=== PATIENT | female | born 1945 | race Caucasian/White ===

== ENCOUNTER 2019-02-09 00:03 | Inpatient (IN) | payer OTHER ==
[~2019-02-09] VITALS: Ht 160 cm; Wt 119.3 kg
[2019-02-09] MEDS ORDERED: ALBU3IS INH (00:30)
[2019-02-09] MEDS ORDERED: GABA600 PO (00:31)
[2019-02-09] MEDS ORDERED: Norco 10-325 T1 EACH PO (00:31)
[2019-02-09] MEDS ORDERED: ZYRTEC10 M1 PO (00:32)
[2019-02-09] MEDS ORDERED: Nexium40 MG PO (00:32)
[2019-02-09] MEDS ORDERED: ETOD400 PO (00:32)
[2019-02-09 00:41] LABS: Base Excess Venous 9.1 mmol/L; Bicarbonate Venous 31.2 mmol/L (24.0-30.0); PCO2 Venous 55.7 mmHg (38-42); pH Blood Venous 7.39 (7.34-7.37)
[2019-02-09 00:42] LABS: BASOPHILS ABSOLUTE AUTO 0.03 K/mm3 (0.00-0.23); BASOPHILS PERCENT AUTO 0 % (0-2); EOSINOPHILS ABSOLUTE AUTO 0.08 K/mm3 (0.00-0.68); EOSINOPHILS PERCENT AUTO 1 % (0-6); Hematocrit 39.4 % (33.0-51.0); Hemoglobin 12.1 g/dL (11.5-16.0); IMMATURE GRAN PERCENT AUTO 1 % (0-1); LYMPHOCYTES ABSOLUTE AUTO 2.37 K/mm3 (0.84-5.20); LYMPHOCYTES PERCENT AUTO 29 % (21-46); MONOCYTES ABSOLUTE AUTO 0.54 K/mm3 (0.16-1.47); MONOCYTES PERCENT AUTO 7 % (4-13); Mean Corpuscular HGB 29.7 pg (26.0-34.0); Mean Corpuscular HGB Conc 30.7 g/dL (31.5-36.5); Mean Corpuscular Volume 97 fL (80-100); Mean Platelet Volume 11.1 fL (9.1-12.4); NEUTROPHILS ABSOLUTE AUTO 4.96 K/mm3 (1.96-9.15); NEUTROPHILS PERCENT AUTO 61 % (41-73); Platelet Count 242 K/mm3 (150-400); RDW Coefficient Variation 14.2 % (11.7-14.2); RDW Standard Deviation 50.4 fL (35.1-46.3); Red Blood Cell Count 4.08 M/mm3 (3.80-5.20); White Blood Cell Count 8.08 K/mm3 (4.00-11.30)
[2019-02-09 01:09] LABS: Alanine Aminotransfer (ALT/SGP 14 U/L (12-78); Albumin, Blood 3.4 g/dL (3.4-5.0); Albumin/Globulin Ratio 0.8 (0.8-1.8); Alk Phos 78 U/L (50-136); Anion Gap 3 mmol/L (6-16); Aspartate Aminotrans (AST/SGOT 9 U/L (12-37); Bilirubin, Total 0.4 mg/dL (0.1-1.0); Blood Urea Nitrogen 13 mg/dL (8-24); Bun/Creatinine Ratio 17.2 (12.0-20.0); CO2, Blood 35 mmol/L (21-32); Calcium, Blood 9.2 mg/dL (8.5-10.1); Chloride, Blood 103 mmol/L (98-108); Creatinine, Blood 0.76 mg/dL (0.40-1.00); Glomerular Filtration Rate >60 (60-); Glucose, Blood 119 mg/dL (70-99); Potassium, Blood 3.9 mmol/L (3.5-5.5); Sodium, Blood 141 mmol/L (136-145); Total Protein, Blood 7.4 g/dL (6.4-8.2); Troponin I <0.015 ng/mL (0.000-0.040)
[2019-02-09] MEDS ORDERED: PIOG30 PO (01:09)
[2019-02-09] MEDS ORDERED: LEVSOD50 PO (01:09)
[2019-02-09 04:58] LABS: BASOPHILS ABSOLUTE AUTO 0.02 K/mm3 (0.00-0.23); BASOPHILS PERCENT AUTO 0 % (0-2); EOSINOPHILS PERCENT AUTO 0 % (0-6); Hemoglobin 11.1 g/dL (11.5-16.0); IMMATURE GRAN ABSOLUTE AUTO 0.08 K/mm3 (0.00-0.10); IMMATURE GRAN PERCENT AUTO 1 % (0-1); LYMPHOCYTES ABSOLUTE AUTO 0.32 K/mm3 (0.84-5.20); LYMPHOCYTES PERCENT AUTO 3 % (21-46); MONOCYTES ABSOLUTE AUTO 0.07 K/mm3 (0.16-1.47); MONOCYTES PERCENT AUTO 1 % (4-13); Mean Corpuscular HGB 29.8 pg (26.0-34.0); Mean Corpuscular HGB Conc 30.8 g/dL (31.5-36.5); Mean Corpuscular Volume 97 fL (80-100); Mean Platelet Volume 11.7 fL (9.1-12.4); NEUTROPHILS PERCENT AUTO 96 % (41-73); Platelet Count 236 K/mm3 (150-400); RDW Coefficient Variation 14.2 % (11.7-14.2); RDW Standard Deviation 50.4 fL (35.1-46.3); Red Blood Cell Count 3.72 M/mm3 (3.80-5.20); White Blood Cell Count 11.29 K/mm3 (4.00-11.30)
--- NOTE | 2019-02-09 06:33 | NUR ---
SHIFT SUMMARY PT A&O X4 . PT ADMITTED FROM ER THIS SHIFT. VSS; TELEMETRY IN PLACE, SR WITH BBB PER SHIRT SORTER. PT ON 3L O2 VIA NC AT THIS TIME; PT DENIES INCREASED SOB; NO INCREASE IN WOB NOTED. CONT. OXIMETRY IN PLACE, 94% AT THIS TIME. SCD'S TO BLE'S. CALL LIGHT IN REACH. WCTM UNTIL REPORT TO DAY SHIFT RN.
--- NOTE | 2019-02-09 08:10 | NUR ---
Yessenia is sitting up in recliner chair, upright, eating breakfast. States that her breathing is improved from when she arrived, but still dyspneic with exertion and tachypneic at rest. She is not able to state a complete sentence without interruption to take a breath. Is wearing oxygen at 3 l/min, which she states is her baseline delivery rate at home. Candie here from imaging to do the duplex study; however, the pt states that she cannot tolerate lying on her back (prevents her from being able to breathe, she states) and the study requires a lot of pictures of the left groin. Pt states that possibly she could lie on her side for the study, after breakfast. Candie states she will check back later.
--- NOTE | 2019-02-10 01:34 | NUR ---
ASSUMED CARE AT 1900. OOB TO BSC AND EXTREME TACHEPNEA W/ THIS ACTIVITY, PAIN REPORTED RLQ IF GAS PAIN. ATTEMPTS TO HAVE BM AND SMALL SOFT BM. TYLENOL FOR PRYOR AND RT LOWER BACK PAIN . UNKNOWN CAUSE REPORTED BY PT. LUNGS MOSTLY CLEAR UPPER AIRWAYS. BBC . EASILY ESCALATES W/ ANXIETY AND CONSTANTLY WANTS TO KNOW WHAT HER SAT READING IS SHE HAS EXERTIONAL SOB WHILE SHIFTING SELF IN BED OR TO DANGLE.SAT NEVER BELOW 90 ON 2-3 L ./CONT TO REFUSE CPAP,AND REFUSES TO WEAR FOR SLEEP/ FEW TIMES DOZING OFF TO SLEEP AND NO ISSUE W/ SAT READ.SKIN FOLD REDNESS. AREA CLEANSED. UNGT APPLIED. MAY NEED NYSTATIN. EXTREME LOWER EXT EDEMA.
--- NOTE | 2019-02-10 06:08 | NUR ---
SHIFT SUMMARY.. NO CHANGE IN ABOVE REVIEW. STILL VERY SOB W/ ACTIVITY OF DANGLE AND BSC. UNABLE TO HELP W/ POST TOILET WIPING. COMFORTABLE PAIN RELIEF THRU NOC. SLEPT 50% OF NOC,SATS ALWAYS >90 W/ EXERTION. BUT PANTING BREATHS AND EDUCATED IN RELAXING W/ BREATHING
--- NOTE | 2019-02-10 11:05 | NUR ---
NOTE PT UP SITTING AT BEDSIDE. SR/ST. PT SOB WITH ACTIVITY OR EARTING. SHE IS ABLE TO TRANSFER TO [facility] TO VOID S/P LASIX TX. PT O2 NEEDS ARE 3L N/C. SAME LITER FLOW AT HOME. PT BLE EDEMA IS STABLE. TALKED WITH PT ABOUT [place] TO SUPPORT FLUID REMOVAL FROM HER LEGS. WILL PLACE THEM WHEN SHE LAYS DOWN. PT C/O OF HEADACHE. FRONT FOREHEAD AND BEHIND HER EYES. MEDICATED WITH TYLENOL AND HUMIDIFIED HER OXYGEN. DAUGHTER AT BEDSIDE. CONTINUE POT.
--- NOTE | 2019-02-11 00:55 | NUR ---
Assumed care of pt at approx 1900. Pt complaint of SOB, pt tachypneic, with shallow rapid breaths. Pt instructed on pursed lip breathing and slow, deep breathing. Pt able to control RR down to 22 with followed instructions. pt with increased RR with conversation, movement, and increased anxiety. Otherwise, VSS, no apparent sign of distress or complaints. Pt able to take all medications whole with water, assists well with transfer and repositions in bed. Maintaining o2 saturations>90% on 3L NC, which is stated baseline per pt. No events on tele at this time. Will continue to monitor and update as needed. See shift assessment for detailed assessment. Call light in reach, pt able to call to make needs known.
[2019-02-11 04:43] LABS: Anion Gap 7 mmol/L (6-16); Blood Urea Nitrogen 29 mg/dL (8-24); Bun/Creatinine Ratio 33.9 (12.0-20.0); CO2, Blood 28 mmol/L (21-32); Calcium, Blood 9.2 mg/dL (8.5-10.1); Chloride, Blood 99 mmol/L (98-108); Creatinine, Blood 0.86 mg/dL (0.40-1.00); Glomerular Filtration Rate >60 (60-); Glucose, Blood 181 mg/dL (70-99); Sodium, Blood 134 mmol/L (136-145)
--- NOTE | 2019-02-11 06:21 | NUR ---
Shift Summary No acute changes this shift, pt with stable VS with exception of increased RR with conversation. RR resolves with instructed breathing, pt follows instruction well and has been increasingly more independant in self guided respiratory recovery as shift continues. Pt able to improve RR on own at this time with little guidance from RN. Pt is currently resting, she did not sleep very much this shift d/t general discomfort and positional SOB. No events on tele, pt remains alert and oriented, pt continues to respond appropriately, follows direction, takes initiative in personal health and recovery. No changes from initial shift assessment.
--- NOTE | 2019-02-11 22:10 | NUR ---
Assumed care of pt and assessed VSS. Pt with improved SOB from last night upon arrival. Pt in no apparent sign of distress, denies increased SOB, though pt remains mildly tachypneic. See shift assessment for detailed assessment. Pt to BSC with minimal assistance from RN and DIE EQUIPMENT OPERATOR. Pt able to make needs known, A&O, uses call light appropriately. Will continue to monitor.
--- NOTE | 2019-02-12 02:54 | NUR ---
at approx 0010 pt went into SVT, see note in pt chart regarding SVT change. At approx 0210 pt up to [facility], complaints of headache. Medicated pt with [place] per orders. At this time, pt back into SVT. Attempted vagal stimulus without effect. Pt asymptomatic. Pt progressed to afib RVR with rates from 130-150. 0240 Dr. Brown called. Still awaiting dr. brown to call back. pt remains asymptomatic.
[2019-02-12 03:36] LABS: PCO2 Arterial 48.3 mmHg (35-45); pH Blood Arterial 7.44 (7.35-7.45)
[2019-02-12 03:37] LABS: PO2 Arterial 65.4 mmHg (80-100)
[2019-02-12 04:27] LABS: Anion Gap 6 mmol/L (6-16); Blood Urea Nitrogen 31 mg/dL (8-24); Bun/Creatinine Ratio 37.1 (12.0-20.0); CO2, Blood 31 mmol/L (21-32); Chloride, Blood 100 mmol/L (98-108); Creatinine, Blood 0.84 mg/dL (0.40-1.00); Glomerular Filtration Rate >60 (60-); Glucose, Blood 156 mg/dL (70-99); Potassium, Blood 3.8 mmol/L (3.5-5.5); Sodium, Blood 137 mmol/L (136-145)
--- NOTE | 2019-02-12 05:51 | NUR ---
Shift Summary Pt with some clinical changes this shift as noted by previous notes. Pt began shift in NSR developed to SVT in the 150's, asx, around midnight this shift, sustained SVT for approx 4 minutes. MD notifed and no new orders recieved. Pt developed SVT, again, which developed into Afib RVR between 130-150 bpm. Pt remained asx but complained of mild anxiety. MD notifed of new rhythm change, increased SOB, and HTN, no new orders recieved. pt currently in NSR, again. Monitoring closely for any changes. Pt has been HTN this shift, RR increased with increased SOB and anxiety. Pt states she feels she has not been sleeping at all since arriving at the hospital on the . Pt was repositioned with pillows to comfort and able to sleep briefly this shift. Call light remains in reach, pt calls appropriately and makes needs known. Will continue to monitor.
--- NOTE | 2019-02-12 19:16 | NUR ---
END OF SHIFT; PT HAD UNEVENTFUL DAY NO ACUTE CHANGES IN CONDITION. COOPERATIVE WITH CARE. PT WEARING SCD'S. HAS PLEASANT AFFECT. O2 SATS REMAIN LOW 90'S ON 2 OR 3 LITERS DEPENDING ON IF PT IS MOVING TO AND FROM BEDSIDE COMMODE. PT RECOVERS SLOWLY AFTER MOVING BUT IS ABLE TO HOLD SATS WHEN LAYING ON BED OR SITTING ON BED. WILL CONTINUE TO MONITOR THIS PATIENT UNTIL REPORT AND HANDOFF TO NOC SHIFT MARLENE RYAN.
--- NOTE | 2019-02-12 21:06 | NUR ---
Assumed care of pt, pt visiting with family and appears to be breathing easier than last night. pt states "I feel good today, I feel less anxious". VSS. No apparent sign of distress, states headache is improving with medication tx. Pt able to converse without moderate SOB. Able to transfer to BSC without moderate CASTANEDA. overall, pt appears to be improving from last night. See shift assessment for detailed assessment. call light in reach, pt able to position self to comfort. Will continue to monitor and update as needed.
--- NOTE | 2019-02-13 02:47 | NUR ---
A fib pt developed from NSR to A fib with rates 120-130 at approl 0140, pt sleeping at this time. Pt with rates trending up overtime, pt with complaint of general discomfort. Dr. Whiteside called at approx 0245. awaiting call back at this time. Will continue to monitor. BP stable.
--- NOTE | 2019-02-13 06:37 | NUR ---
Shift Summary Pt currently in NSR. One event of Afib with rates 130-150 resolved with 5mg lopressor IV. Pt slept more this shift, appears more calm and resting more comfortably. Pt able to converse with less SOB than last night, less CASTANEDA. Pt appears in a more cheerful mood. VSS and no acute changes from initial shift assessment. To [facility] with minimal assist. Will continue to monitor for any changes. See previous notes for summary of events from last night.
--- NOTE | 2019-02-13 07:46 | NUR ---
INITIAL ASSESSMENT: PT IS AWAKE SITTING ON THE EDGE OF THE BED. PT JUST FINISHED WITH ORAL CARE. PT ASSISTED TO CLEAN UP. PT STATES SHE IS FEELING BETTER THIS MORNING, "I ACTUALLY GOT A FULL NIGHTS SLEEP LAST NIGHT." PT IS ALERT AND OX3. PT DENIES PAIN AT THIS TIME. HRR, SR WITH BBB IN THE 70S PER TELEMETRY. BIOX 94% ON 3L VIA NC. PT IS SOB WITH CONVERSATION. PT STATES SHE HAS A NPC. BT+, PT STATES SHE HASN'T HAD A "GOOD BM" IN DAYS AND STATES SHE IS CHRONICALLY CONTSTIPATED AT HOME, WILL MEDICATE PER MD ORDERS. PPP. PT HAS 3+ EDEMA ON BLE FROM HER KNEES DOWN. VSS. PT DENIES FURTHER NEEDS AT THIS TIME. CALL LIGHT IN REACH. WILL CONTINUE TO MONITOR.
--- NOTE | 2019-02-13 09:26 | NUR ---
AT BEDSIDE TO SEE PATIENT. MD ENCOURAGED PT TO GET OOB AND WALK MUCH SHE CAN TOLERATE. SHE WOULD LIKE THE GOAL TO BE FOR THE PATIENT TO BE ABLE TO WALK TO THE BATHROOM AND REGAIN HER STRENGTH. PT EVAL AND TX ORDRED. AM MEDS GIVEN AT THIS TIME. PT ASSISTED TO BSC PER REQUEST, CALL LIGHT IN REACH.
--- NOTE | 2019-02-13 10:30 | NUR ---
REPORT GIVEN TO JORDEN ROSARIO
--- NOTE | 2019-02-13 11:00 | NUR ---
ASSISTED UP/DOWN FROM BSC; PATIENT REQUIRES SBA BUT BEARS WT. WELL AND ABLE TO GET UP/DOWN WITHOUT ASSIST.; SEVERE DYSPNEA WITH EXERTION, HOWEVER. OXYGEN AT 3L/MIN VIA NC; FREQUENT REST PERIODS BETWEEN ACTIVITIES.
--- NOTE | 2019-02-13 17:15 | NUR ---
CBG 180'S; COVERED WITH 3U NOVOLOG PER SS COVERAGE.
--- NOTE | 2019-02-13 18:26 | NUR ---
SUMMARY: OVERALL STATUS IMPROVED. PHYSICAL THERAPY HERE EARLIER AND AMBULATED PATIENT FROM BED TO RECLINER; SEE THERAPY NOTES. LUNGS VERY DECREASED T/O; NO WHEEZES NOTED. FAMILY AND FRIENDS IN/OUT TO VISIT PATIENT; PATIENT FEELING BETTER AND ENJOYS THE COMPANY. VOIDS ABOUT 550-650 PER VOID AND CONT. TO RECEIVE IV LASIX. LEGS LESS SWOLLEN BUT REMAINS SWOLLEN. WILL REPORT TO ONCOMING RN.
--- NOTE | 2019-02-14 00:18 | NUR ---
PROVIDER NOTIFIED 0- SEVERINO CALLED REGARDING PT'S BP. SBP NOTED TO BE ABOVE 170. DR NOTIFIED REGARDING PATIENTS CONVERSION INTO AFIB LAST NOC SHIFT AND RECONVERSION BACK INTO SR, AND THAT THE PATIENT HAS REMAINED IN SR SINCE THEN PER TELE. PLATEN PRESS FEEDER PLACES ORDER FOR LABETOLOL 10MG IV, Q4P FOR SBP >160. PT HAS BEEN SLIGHTLY BELOW 160 SINCE THIS INITIAL CALL.
[2019-02-14 04:17] LABS: BASOPHILS ABSOLUTE AUTO 0.02 K/mm3 (0.00-0.23); BASOPHILS PERCENT AUTO 0 % (0-2); EOSINOPHILS ABSOLUTE AUTO 0.01 K/mm3 (0.00-0.68); EOSINOPHILS PERCENT AUTO 0 % (0-6); Hematocrit 35.1 % (33.0-51.0); Hemoglobin 11.1 g/dL (11.5-16.0); IMMATURE GRAN ABSOLUTE AUTO 0.31 K/mm3 (0.00-0.10); IMMATURE GRAN PERCENT AUTO 4 % (0-1); LYMPHOCYTES ABSOLUTE AUTO 1.41 K/mm3 (0.84-5.20); LYMPHOCYTES PERCENT AUTO 18 % (21-46); MONOCYTES ABSOLUTE AUTO 0.78 K/mm3 (0.16-1.47); MONOCYTES PERCENT AUTO 10 % (4-13); Mean Corpuscular HGB 29.1 pg (26.0-34.0); Mean Corpuscular HGB Conc 31.6 g/dL (31.5-36.5); Mean Platelet Volume 11.6 fL (9.1-12.4); NEUTROPHILS ABSOLUTE AUTO 5.54 K/mm3 (1.96-9.15); NEUTROPHILS PERCENT AUTO 69 % (41-73); Platelet Count 219 K/mm3 (150-400); RDW Standard Deviation 47.2 fL (35.1-46.3); Red Blood Cell Count 3.81 M/mm3 (3.80-5.20); White Blood Cell Count 8.07 K/mm3 (4.00-11.30)
[2019-02-14 04:20] LABS: Mean Corpuscular Volume 92 fL (80-100)
[2019-02-14 04:40] LABS: Anion Gap 5 mmol/L (6-16); Blood Urea Nitrogen 32 mg/dL (8-24); Bun/Creatinine Ratio 34.7 (12.0-20.0); CO2, Blood 38 mmol/L (21-32); Calcium, Blood 8.4 mg/dL (8.5-10.1); Chloride, Blood 97 mmol/L (98-108); Creatinine, Blood 0.92 mg/dL (0.40-1.00); Glomerular Filtration Rate >60 (60-); Glucose, Blood 124 mg/dL (70-99); Phosphorus, Blood 3.9 mg/dL (2.5-4.9); Potassium, Blood 3.3 mmol/L (3.5-5.5); Sodium, Blood 140 mmol/L (136-145)
--- NOTE | 2019-02-14 05:39 | NUR ---
END OF SHIFT SUMMARY PT AXO TALKIGN WITH STAF APPROPRIATELY T/O SHIFT. PT HAS BEEN RESTING IN BED T/O SHIFT. PT UP TO BSC MULTIPLE TIMES THIS SHIFT, DIURESING. NO ACUTE CHANGES THIS SHIFT WITH THE CLIENT. PERIOD OF HTNNOTED, ORDER OBTAINED FOR IV LABETOLOL, GIVEN PER EMAR. PT HAS REMAINED IN SR, NO AFIB EVENTS. PT CONTINUES TO BE COOPERATIVE WITH CARE. CALL LIGHT WITHIN REACH. USES CALL LIGHT APPROPRIATELY. WILL CONTINUE TO MONITOR PT UNTIL SHIFT CHANGE.
--- NOTE | 2019-02-14 08:30 | NUR ---
ASSUMED CARE PT ALERT AND ORIENTED. VS STABLE. O2 SATS REMAIN ABOVE 90% ON 3L NC. PT STATES SHE USES 3L NC AT BASELINE. LS CLEAR IN THE UPPER LOBES AND CRACKLES IN THE BASES. PT DENIES ANY PAIN. PT ABLE TO TRANSFER TO BSC NEEDED WITH SBA. BP ELEVATED AND WILL DISCUSS WITH DR. CHACON THIS AM. PT DENIES ANY PAIN. WILL CONTINUE TO MONITOR CLOSELY. CALL LIGHT IN REACH.
--- NOTE | 2019-02-14 18:03 | NUR ---
SHIFT SUMMARY PT ALERT AND ORIENTED. VS STABLE. 02 SATS REMAIN ABOVE 90% ON 3L NC. PT USED THE BIPAP FOR APPROXIMATLEY 1 HOUR THIS SHIFT WHILE RESTING PER PT REQUEST. HR HAS REMAINED NSR. PT DENIES ANY PAIN. PT ABLE TO TRANSFER TO BSC NEEDED TO VOID. WILL CONTINUE TO MONITOR AND REPORT TO ONCOMING RN. CALL LIGHT IN REACH. FAMILY AT BEDSIDE.
--- NOTE | 2019-02-14 19:30 | NUR ---
attemtpted to see pt with nursing. They are assessing chronic back pain. more alert on NC. Will attemtp to review her care plan for future and polst tomorrow.
--- NOTE | 2019-02-14 21:14 | NUR ---
ASSUMED CARE OF PATIENT AT APPROXIMATELY 1900 FROM ROLAND Najera RN. PATIENT ALERT AND ORIENTED X4; SBA TO BEDSIDE COMMODE. PATIENT HAS WEAKNESS, BLE EDEMA AND DYSPNEA WITH AMBULATION. PATIENT REPORTS PAIN IN HER RIGHT SHOULDER THAT SHE STATES FROM TORN ROTATOR CUFF, PAIN IN RIGHT KNEE AND PAIN IN BACK; PAIN LEVEL A 3 OR LESS IN EACH AREA; DENIES PAIN MEDICATION; WILL TRY K-PAD. PATIENT DENIES NUMBNESS, TINGLING, DIZZINESS AND NAUSEA. NSR W/ BBB ON TELE; OXYGEN SATURATION ABOVE 90% ON 2-3LPM VIA NC (REPORTED BASELINE FOR PATIENT). PATIENT ANXIOUS AT TIMES; REQUESTS XANAX LATER TONIGHT; PATIENT EXPRESSED CONCERN ABOUT WAKING UP ANXIOUS AT 2AM THAT SHE REPORTS HAS BEEN OCCURING FOR THE PAST FEW NIGHTS. SCDS IN PLACE; PIV S/L. PATIENT CURRENTLY RESTING IN BED; CALL LIGHT IN REACH; BED IN LOWEST POSISTION; BED ALARM ON; WILL CONTINUE TO MONITOR AND ASSESS UNTIL END OF SHIFT.
--- NOTE | 2019-02-15 08:00 | NUR ---
ASSUMED CARE PT ALERT AND ORIENTED. VS STABLE. 02 SATS REMAIN ABOVE 90% ON 3L NC. PT REPORTS THAT SHE SLEPT MUCH BETTER THROUGHOUT THE NIGHT. LS CLEAR IN THE UPPER LOBES, BUT CRACKLES IN THE BASES. PT REPORTS FEELING STIFF IN HER BACK, BUT IS TOLERABLE AT THIS TIME. PT ABLE TO STAND AND TRANSFER TO BSC NEEDED TO VOID. WILL CONTINUE TO MONITOR CLOSELY.
[2019-02-15 14:25] LABS: Albumin, Blood 3.3 g/dL (3.4-5.0); Anion Gap 6 mmol/L (6-16); Blood Urea Nitrogen 30 mg/dL (8-24); Bun/Creatinine Ratio 34.3 (12.0-20.0); CO2, Blood 37 mmol/L (21-32); Calcium, Blood 8.9 mg/dL (8.5-10.1); Chloride, Blood 95 mmol/L (98-108); Creatinine, Blood 0.87 mg/dL (0.40-1.00); Glomerular Filtration Rate >60 (60-); Glucose, Blood 149 mg/dL (70-99); Potassium, Blood 4.2 mmol/L (3.5-5.5); Sodium, Blood 138 mmol/L (136-145)
--- NOTE | 2019-02-15 19:03 | NUR ---
DAY SHIFT SUMMARY PT ALERT AND ORIENTED. VS STABLE. O2 SATS REMAIN ABOVE 90% ON 3L NC. PT DID HAVE 1 RUN OF SVT LASTING LESS THAN [address] VACA AWARE. PT DENIES ANY PAIN. PT NOW ABLE TO TRANSFER WITH [facility] SHORT DISTANCES. LS STILL CLEAR IN THE UPPER LOBES AND CRACKLES IN THE BASES. PT REPORTS SHE STILL HAS NOT HAD A SIGNIFICANT BOWEL MOVEMENT, JUST OCCASIONAL SMALL BM. FAMILY AT THE BEDSIDE. WILL CONITNUE TO MONITOR CLOSELY.
--- NOTE | 2019-02-16 00:15 | NUR ---
RECEIVED REPORT FROM ROLAND ROSARIO AND ASSUMED CARE OF PT. PT IS RESTING IN BED WITH EYES CLOSED, APPEARS RELAXED AND COMFORTABLE. CONT BIOX AND TELE IN PLACE, NO ACUTE CONCERNS AT THIS TIME. WILL CONTINUE TO MONITOR AND CONTINUE PLAN OF CARE.
[2019-02-16 04:01] LABS: Hematocrit 40.3 % (33.0-51.0); Hemoglobin 12.8 g/dL (11.5-16.0); Mean Corpuscular HGB 29.7 pg (26.0-34.0); Mean Corpuscular HGB Conc 31.8 g/dL (31.5-36.5); Mean Corpuscular Volume 94 fL (80-100); Mean Platelet Volume 11.5 fL (9.1-12.4); Platelet Count 240 K/mm3 (150-400); RDW Standard Deviation 47.7 fL (35.1-46.3); Red Blood Cell Count 4.31 M/mm3 (3.80-5.20); White Blood Cell Count 16.77 K/mm3 (4.00-11.30)
[2019-02-16 04:38] LABS: Albumin, Blood 3.3 g/dL (3.4-5.0); Anion Gap 5 mmol/L (6-16); Blood Urea Nitrogen 32 mg/dL (8-24); Bun/Creatinine Ratio 35.3 (12.0-20.0); CO2, Blood 37 mmol/L (21-32); Calcium, Blood 9.2 mg/dL (8.5-10.1); Chloride, Blood 96 mmol/L (98-108); Creatinine, Blood 0.91 mg/dL (0.40-1.00); Glomerular Filtration Rate >60 (60-); Glucose, Blood 108 mg/dL (70-99); Phosphorus, Blood 3.9 mg/dL (2.5-4.9); Potassium, Blood 3.4 mmol/L (3.5-5.5); Sodium, Blood 138 mmol/L (136-145)
--- NOTE | 2019-02-16 07:39 | NUR ---
PT HAS BEEN RESTLESS DURING THE SHIFT, STATES "I KEEP WAKING UP BECAUSE OF THAT LOUD SOUND IN MY THROAT". PT HAS SPUTUM IN UPPER AIRWAYS THAT IS DIFFICULT TO CLEAR. C/O CHRONIC BACK PAIN, MEDICATED PER EMAR WITH GOOD EFFECT. ALSO ASSISTED TO REPOSITION AND STAND TOLERABLE, ABLE TO BEAR FULL WEIGHT AND PIVOT EASILY TO THE BSC. PT CONTINUES ON HOME BASELINE OF O2 AT 3L. NO ACUTE CONCERNS DURING THE SHIFT, PLAN FOR POSSIBLE STATUS CHANGE TODAY. PT IS REQUESTING DISCHARGE TO REHAB TO BUILD UP HER STRENGTH PRIOR TO RETURNING HOME. REPORT GIVEN TO MARLENE CHOW.
--- NOTE | 2019-02-16 07:41 | NUR ---
NURSING PCU DAYSHIFT: Assumed care of pt at approx 0700. A/O, pleasant, cooperative w/care. C/O 10 chronic back pain, treating w/meds, repositioning, and heat application. Skin is fragile w/redness to folds, no breakdown noted. General weakness, ambulates w/SBA using FWW. Tele in place, NSR w/BBB and PVC's, no c/o CP/pressure, SBP 120's prior to a.m. meds, b/l pedal edema, improving per pt. L/S w/fine bibasilar crackles, dyspnea w/exertion, O2 sat mid 90's on 3L NC, continuous bedside O2 monitoring, moist/INTERIOR SPECIALIST cough. Abd soft, mildly tender per pt, denies nausea, BT+, voiding w/o difficulty. PIV x1, s/l. Pt denies any current needs or questions regarding plan of care. Call light in reach and pt is able to use w/o difficulty. Awaiting rounding from PMD, cont to monitor for any changes.
--- NOTE | 2019-02-16 17:31 | NUR ---
NURSING PCU DAYSHIFT SUMMARY: No significant changes noted t/o the shift. VS have remained stable, cardiac status unchanged. Cough now becoming productive, producing green/yellow sputum. Pt worked w/therapy this afternoon, tolerated well. OOB to shower w/staff assist, respiratory status remained stable t/o this time. Seen by PMD, new d/o received. No s/s of acute distress. Pt currently sitting on edge of bed having supper, denies any questions/needs. Call light in reach, cont to monitor until rpt is given to NOC RN.
--- NOTE | 2019-02-16 21:59 | NUR ---
OPENING NOTE RECEIVED BEDSIDE REPORT FROM CLAUDINE RN AND ASSUMED PT CARE. PT IS RESTING IN BED, AWAKE AND TALKATIVE. STATES "I'VE HAD A REALLY GOOD DAY TODAY". DENIES COMPLAINTS AT THIS TIME. WILL CONTINUE PLAN OF CARE, NO ACUTE CONCERNS.
[2019-02-17 03:49] LABS: BASOPHILS ABSOLUTE AUTO 0.03 K/mm3 (0.00-0.23); BASOPHILS PERCENT AUTO 0 % (0-2); EOSINOPHILS ABSOLUTE AUTO 0.03 K/mm3 (0.00-0.68); EOSINOPHILS PERCENT AUTO 0 % (0-6); Hematocrit 36.8 % (33.0-51.0); Hemoglobin 11.4 g/dL (11.5-16.0); IMMATURE GRAN ABSOLUTE AUTO 0.25 K/mm3 (0.00-0.10); IMMATURE GRAN PERCENT AUTO 2 % (0-1); LYMPHOCYTES ABSOLUTE AUTO 1.85 K/mm3 (0.84-5.20); LYMPHOCYTES PERCENT AUTO 16 % (21-46); MONOCYTES ABSOLUTE AUTO 0.86 K/mm3 (0.16-1.47); MONOCYTES PERCENT AUTO 7 % (4-13); Mean Corpuscular HGB 29.5 pg (26.0-34.0); Mean Corpuscular Volume 95 fL (80-100); Mean Platelet Volume 11.5 fL (9.1-12.4); NEUTROPHILS ABSOLUTE AUTO 8.75 K/mm3 (1.96-9.15); NEUTROPHILS PERCENT AUTO 74 % (41-73); Platelet Count 202 K/mm3 (150-400); RDW Standard Deviation 48.9 fL (35.1-46.3); Red Blood Cell Count 3.87 M/mm3 (3.80-5.20); White Blood Cell Count 11.77 K/mm3 (4.00-11.30)
[2019-02-17 04:13] LABS: Albumin, Blood 2.9 g/dL (3.4-5.0); Anion Gap 2 mmol/L (6-16); Blood Urea Nitrogen 35 mg/dL (8-24); Bun/Creatinine Ratio 39.1 (12.0-20.0); CO2, Blood 39 mmol/L (21-32); Chloride, Blood 97 mmol/L (98-108); Glomerular Filtration Rate >60 (60-); Glucose, Blood 131 mg/dL (70-99); Potassium, Blood 3.6 mmol/L (3.5-5.5); Sodium, Blood 138 mmol/L (136-145)
--- NOTE | 2019-02-17 05:26 | NUR ---
PT HAS BEEN RESTLESS AT TIMES, OVERALL STATES "I'M FEELING BETTER THIS MORNING AND I GOT A LITTLE SLEEP". DENIES PAIN, C/O SHORTNESS OF BREATH WITH ACTIVITY AND OCCASIONAL PRODUCTIVE COUGH. VSS, SEE ASSESSMENT FOR DETAILS. OVERALL STATUS: STABLE AND EXPECTING POSSIBLE STATUS CHANGE TODAY. NO TACHYCARDIA EVENTS DURING THIS SHIFT. PT IS DISCUSSING DISCHARGE PLANS.
--- NOTE | 2019-02-17 07:17 | NUR ---
NURSING PCU DAYSHIFT: Assumed care of pt at approx 0700. A/O, pleasant, cooperative w/care. General weakness noted, ambulates w/one staff assist. C/O 2-3/10 chronic back pain, treating w/meds, repositioning, and heat as ordered. Skin is fragile, redness to folds, no breakdown noted. Tele in place, NSR w/BBB, no c/o CP/pressure, SBP 150's, trace-1+ b/l pedal edema (R>L). L/S dim, fine crackles to LLL, dyspnea w/exertion, O2 sat upper 90's on 3L NC, occ cough producing thick green sputum, continuous bedside O2 monitoring. Abd SNT, BT+, voiding w/o difficulty. PIV x1, s/l. Pt expresses concern regarding not having a recent BM though is passing gas, will continue bowel care meds. Denies any current needs or questions regarding plan of care. Currently sitting on edge of bed, call light in reach. Awaiting rounding from PMD, cont to monitor for any changes.
--- NOTE | 2019-02-17 17:38 | NUR ---
NURSING PCU DAYSHIFT SUMMARY: No significant changes noted t/o the shift. Pt has been quite tired though has been participating in ADL's and spent time OOB in chair. Respiratory and cardiac status unchanged. Pt changed to medical status w/tele, awaiting bed assignment. Pt denies any current needs or questions regarding plan of care, call light in reach, cont to monitor until rpt is given to NOC RN.
[2019-02-18 04:03] LABS: BASOPHILS ABSOLUTE AUTO 0.04 K/mm3 (0.00-0.23); BASOPHILS PERCENT AUTO 0 % (0-2); EOSINOPHILS ABSOLUTE AUTO 0.05 K/mm3 (0.00-0.68); EOSINOPHILS PERCENT AUTO 0 % (0-6); Hematocrit 39.2 % (33.0-51.0); Hemoglobin 11.9 g/dL (11.5-16.0); IMMATURE GRAN ABSOLUTE AUTO 0.29 K/mm3 (0.00-0.10); IMMATURE GRAN PERCENT AUTO 2 % (0-1); LYMPHOCYTES ABSOLUTE AUTO 1.66 K/mm3 (0.84-5.20); LYMPHOCYTES PERCENT AUTO 11 % (21-46); MONOCYTES ABSOLUTE AUTO 0.98 K/mm3 (0.16-1.47); MONOCYTES PERCENT AUTO 7 % (4-13); Mean Corpuscular HGB 29.5 pg (26.0-34.0); Mean Corpuscular HGB Conc 30.4 g/dL (31.5-36.5); Mean Corpuscular Volume 97 fL (80-100); Mean Platelet Volume 11.2 fL (9.1-12.4); NEUTROPHILS ABSOLUTE AUTO 11.52 K/mm3 (1.96-9.15); NEUTROPHILS PERCENT AUTO 79 % (41-73); Platelet Count 217 K/mm3 (150-400); RDW Coefficient Variation 13.8 % (11.7-14.2); RDW Standard Deviation 49.1 fL (35.1-46.3); Red Blood Cell Count 4.04 M/mm3 (3.80-5.20); White Blood Cell Count 14.54 K/mm3 (4.00-11.30)
[2019-02-18 04:23] LABS: Albumin, Blood 3.1 g/dL (3.4-5.0); Anion Gap 3 mmol/L (6-16); Blood Urea Nitrogen 26 mg/dL (8-24); Bun/Creatinine Ratio 32.1 (12.0-20.0); CO2, Blood 39 mmol/L (21-32); Calcium, Blood 9.1 mg/dL (8.5-10.1); Chloride, Blood 97 mmol/L (98-108); Creatinine, Blood 0.81 mg/dL (0.40-1.00); Glomerular Filtration Rate >60 (60-); Glucose, Blood 112 mg/dL (70-99); Phosphorus, Blood 3.8 mg/dL (2.5-4.9); Potassium, Blood 3.9 mmol/L (3.5-5.5); Sodium, Blood 139 mmol/L (136-145)
--- NOTE | 2019-02-18 06:24 | NUR ---
SHIFT SUMMARY PT HAS REMAINED AOX4 THROUGHOUT SHIFT. VSS. PLEASANT AND COOPERATIVE WITH CARE. O2 SATS HAVE REMAINED >90% ON 3L VIA NASAL CANNULA, WHICH IS BASELINE. CONTINUES TO AMBULATE WITH STANDBY ASSIST TO BEDSIDE COMMODE WITH MINIMAL DIFFICULTY. PT HAVING PRODUCTIVE COUGH THIS AM WITH THICK, YELLOW SPUTUM. LUNG SOUNDS CONTINUE TO BE CLEAR IN THE UPPER LOBES WITH DIMINISHED BASES, LLL WITH FINE CRACKLES. PT WILL SHIFT SELF IN BED, BUT MOSTLY REMAINS ON L SIDE DUE TO DISCOMFORT IN R HIP. MEDICATED ONCE FOR DISCOMFORT IN BACK AND HEADACHE THAT IMPROVED WITH ORDERED MEDICATIONS. NO OTHER CHANGES FROM INITIAL ASSESSMENT.WILL CONTINUE TO MONITOR AND REPORT TO ONCOMING SHIFT RN. BED IN LOW POSITION, CALL LIGHT IN REACH.
--- NOTE | 2019-02-18 08:30 | NUR ---
ASSUMED CARE PT ALERT AND ORIENTED. VS STABLE. O2 SATS REMAIN ABOVE 90% ON 3L NC. HR NSR. PT DENIES ANY PAIN. PT ABLE TO AMBULATE TO BSC NEEDED WITH SBA. PLAN TO DISCHARGE TO SNF TODAY IF BED AVAILABLE. PT AWARE OF PLAN. EDUCATION PROVIDED ABOUT FLUID RESTRICTION THIS AM. WILL CONTINUE TO MONITOR CLOSELY.
[2019-02-18] MEDS ORDERED: ACET325 PO (11:57)
[2019-02-18] MEDS ORDERED: ALBU3IS INH (11:57)
[2019-02-18] MEDS ORDERED: ALPR.25 PO (12:00)
[2019-02-18] MEDS ORDERED: BENZ100A PO (12:01)
[2019-02-18] MEDS ORDERED: DOCU100 PO (12:02)
[2019-02-18] MEDS ORDERED: FURO40 PO (12:02)
[2019-02-18] MEDS ORDERED: MIRALAX PO (12:27)
[2019-02-18] MEDS ORDERED: POTA10T PO (12:28)
[2019-02-18] MEDS ORDERED: PRED10 PO (12:30)
[2019-02-18] MEDS ORDERED: XARELTO20 MG PO (12:31)
[2019-02-18] MEDS ORDERED: SENN187 PO (12:33)
--- NOTE | 2019-02-18 15:29 | NUR ---
SHIFT SUMMARY ORDERS FOR DISCHARGE PLACED. PT INFORMED OF PLAN OF CARE. DISCHARGE INSTRUCTIONS PROVIDED TO PT. EDUCATION ON NEW MEDICATIONS PROVIDED. DISCHARGE PLANNING TEAM HAS FAXED INFORMATION TO [facility]. ATTEMPTED TO CALL REPORT TO [facility]. AWAITING CALL. PT TAKEN BY TRANSPORT WITH ALL OF HER BELONGINGS.
== END 2019-02-18 15:23 | DRG 291 ==
LOC: ER 00:03 → PCU 03:30
PROVIDERS: Emergency Medicine; Internal Medicine; Internal Medicine Pulmonary Disease; ADMIT Hospitalist
PROC: 5A09357 Assistance with Respiratory Ventilation, Less than 24 Consecutive Hours, Continuous Positive Airway Pressure (ICD-10-PCS; principal; 2019-02-09)
DX: I50.33 Acute on chronic diastolic (congestive) heart failure (principal); J96.21 Acute and chronic respiratory failure with hypoxia; J44.1 Chronic obstructive pulmonary disease with (acute) exacerbation; Z99.81 Dependence on supplemental oxygen; E66.01 Morbid (severe) obesity due to excess calories; E11.42 Type 2 diabetes mellitus with diabetic polyneuropathy; K21.9 Gastro-esophageal reflux disease without esophagitis; I89.0 Lymphedema, not elsewhere classified; E03.9 Hypothyroidism, unspecified; Z79.84 Long term (current) use of oral hypoglycemic drugs; Z72.3 Lack of physical exercise; F41.9 Anxiety disorder, unspecified; E87.6 Hypokalemia; D72.829 Elevated white blood cell count, unspecified; T38.0X5A Adverse effect of glucocorticoids and synthetic analogues, initial encounter; Y92.239 Unspecified place in hospital as the place of occurrence of the external cause; K59.00 Constipation, unspecified; R00.1 Bradycardia, unspecified; T46.1X5A Adverse effect of calcium-channel blockers, initial encounter
CPT/HCPCS: 36415; 36600; 71045; 71046; 80048; 80053; 80069; 82803; 82947; 83605; 83880; 84145; 84484; 85025; 85027; 87040; 87070; 87077; 87186; 87205; 93005; 93010; 93306; 93971; 94640; 94660; 94762; 96361; 96365; 96375; 97110; 97116; 97163; 97530; 99285-25; A9270; J0456; J0692; J0696; J1650; J1940; J2060; J2930; J7030; J7050; J7512

== ENCOUNTER 2019-10-15 15:20 | Inpatient (IN) | payer OTHER ==
[~2019-10-15] VITALS: Ht 157.5 cm; Wt 114.3 kg
[~2019-10-15 15:20] MED LIST: ACET325 PO; ALBU3IS INH; ALPR.25 PO; BENZ100A PO; DOCU100 PO; ETOD400 PO; FURO40 PO; GABA600 PO; LEVSOD50 PO; MIRALAX PO; Nexium40 MG PO; Norco 10-325 T1 EACH PO; PIOG30 PO; POTA10T PO; PRED10 PO; SENN187 PO; XARELTO20 MG PO; ZYRTEC10 M1 PO
[2019-10-15 15:57] LABS: BASOPHILS ABSOLUTE AUTO 0.06 K/mm3 (0.00-0.23); BASOPHILS PERCENT AUTO 0 % (0-2); EOSINOPHILS PERCENT AUTO 1 % (0-6); Hematocrit 36.1 % (33.0-51.0); IMMATURE GRAN ABSOLUTE AUTO 0.22 K/mm3 (0.00-0.10); IMMATURE GRAN PERCENT AUTO 1 % (0-1); LYMPHOCYTES ABSOLUTE AUTO 1.83 K/mm3 (0.84-5.20); LYMPHOCYTES PERCENT AUTO 10 % (21-46); MONOCYTES ABSOLUTE AUTO 1.35 K/mm3 (0.16-1.47); MONOCYTES PERCENT AUTO 7 % (4-13); Mean Corpuscular HGB 22.5 pg (26.0-34.0); Mean Corpuscular HGB Conc 27.7 g/dL (31.5-36.5); Mean Corpuscular Volume 81 fL (80-100); Mean Platelet Volume 10.5 fL (9.1-12.4); NEUTROPHILS ABSOLUTE AUTO 15.24 K/mm3 (1.96-9.15); NEUTROPHILS PERCENT AUTO 81 % (41-73); Platelet Count 496 K/mm3 (150-400); RDW Coefficient Variation 16.4 % (11.7-14.2); RDW Standard Deviation 48.1 fL (35.1-46.3); Red Blood Cell Count 4.44 M/mm3 (3.80-5.20)
[2019-10-15 16:08] LABS: PCO2 Arterial 45.7 mmHg (35-45); pH Blood Arterial 7.43 (7.35-7.45)
[2019-10-15] MEDS ORDERED: BUDE6HFA INH (16:13)
[2019-10-15] MEDS ORDERED: COMBIVENT RESPIM4 GM (16:17)
[2019-10-15] MEDS ORDERED: Ex-Lax15 MG PO (16:17)
[2019-10-15 16:21] LABS: Alanine Aminotransfer (ALT/SGP 13 U/L (12-78); Albumin, Blood 3.2 g/dL (3.4-5.0); Albumin/Globulin Ratio 0.6 (0.8-1.8); Alk Phos 139 U/L (50-136); Anion Gap 6 mmol/L (6-16); Aspartate Aminotrans (AST/SGOT 13 U/L (12-37); Bilirubin, Total 0.4 mg/dL (0.1-1.0); Blood Urea Nitrogen 17 mg/dL (8-24); Bun/Creatinine Ratio 18.9 (12.0-20.0); CO2, Blood 30 mmol/L (21-32); Calcium, Blood 9.1 mg/dL (8.5-10.1); Chloride, Blood 100 mmol/L (98-108); Glomerular Filtration Rate >60 (60-); Glucose, Blood 168 mg/dL (70-99); Potassium, Blood 4.2 mmol/L (3.5-5.5); Sodium, Blood 136 mmol/L (136-145); Total Protein, Blood 8.2 g/dL (6.4-8.2); Troponin I <0.015 ng/mL (0.000-0.040)
[2019-10-15] MEDS ORDERED: TRAZ50 PO (16:59)
[2019-10-15] MEDS ORDERED: Pedi-Dri 100,0060 GM TOP ×2 (17:00→18:40)
[2019-10-15] MEDS ORDERED: CLOB.05TO (17:00)
[2019-10-15] MEDS ORDERED: METF500C (17:00)
[2019-10-15] MEDS ORDERED: JARDIANCE25 MG PO (17:00)
[2019-10-15] MEDS ORDERED: XARELTO20 M1 PO (18:18)
[2019-10-15] MEDS ORDERED: Symbicort 16010.2 GM INH (18:19)
[2019-10-15] MEDS ORDERED: METFORMIN HCL500 M3 PO (18:20)
[2019-10-15] MEDS ORDERED: Neurontin800 MG PO (18:20)
[2019-10-15] MEDS ORDERED: ZYRTEC10 M2 PO (18:22)
--- NOTE | 2019-10-15 19:08 | NUR ---
ADMIT NOTE - DAYSHIFT PATIENT ARRIVED VIA GURNEY TO PCU, PATIENT SBA/PIVOT TO UNIT BED - TOLERATED POORLY BECOME SOB ON 4 LPM NC. PATIENT TRIPOD POSITION WITH PIERCED LIP BREATHING TO RECOVER. PATIENT HAS REDNESS NOTED UNDER ABD, BREAST FOLDS AND GROIN AREA - PATIENT STATES SHE USES NYSTATIN AT HOME AND ALSO HAS PSORISIS. PATIENT HAS HX OF AFIB AND TAKES XARELTO BUT IS CURRENTLY IN SR W/ BBB IN THE 90'S PER COMMUNITY HEALTH NURSING DIRECTOR WITH NO CARDIAC EVENTS NOTED THIS ADMIT. RESP LABORED AND UNEVEN - SA02 >96% ON 4 LPM NC (HOME DOSE O2). PATIENT HAS PRODUCTIVE COUGH WITH YELLOW/GREEN THICK SPUTUM NOTED. REPORTED TO NOC SHIFT RN OMKAR LANGLEY. PATIENT REMAINS ALERT AND ORIENTED X4 - ORIENTED TO UNIT - CALL LIGHT W/I REACH AND FAMILY AT BEDSIDE. RESPIRTORY THERAPY NOTIFIED OF BREATHING TX AND CONTINUOUS BIOX ORDERS.
[2019-10-15 20:34] LABS: Adenovirus Not Detected (NOT DETECT); Coronavirus 229E Not Detected (NOT DETECT)
[2019-10-15 20:35] LABS: Bordetella pertussis Not Detected (NOT DETECT); Chlamydophila pneumoniae Not Detected (NOT DETECT); Coronavirus HKU1 Not Detected (NOT DETECT); Coronavirus NL63 Not Detected (NOT DETECT); Coronavirus OC43 Not Detected (NOT DETECT); Human Metapneumovirus Not Detected (NOT DETECT); Human Rhinovirus/Enterovirus Not Detected (NOT DETECT); Influenza A Not Detected (NOT DETECT); Influenza A/2009-H1 Not Detected (NOT DETECT); Influenza A/H1 Not Detected (NOT DETECT); Influenza A/H3 Not Detected (NOT DETECT); Influenza B Not Detected (NOT DETECT); Mycoplasma pneumoniae Not Detected (NOT DETECT); Parainfluenza Virus 1 Not Detected (NOT DETECT); Parainfluenza Virus 2 Not Detected (NOT DETECT); Parainfluenza Virus 3 Not Detected (NOT DETECT); Parainfluenza Virus 4 Not Detected (NOT DETECT); Respiratory Syncytial Virus Not Detected (NOT DETECT)
--- NOTE | 2019-10-15 21:40 | NUR ---
ASSUMED CARE OF PATIENT AT APPROXIMATELY 1900 FROM ALE Brown RN. PATIENT ALERT AND ORINETED X4; WEAKNESS AND DYSPNEA. PATIENT REPORTS SHE FEELS MUCH BETTER SINCE ARRIVAL TO HOSPITAL. PATIENT DENIES PAIN, NUMBNESS, TINGLING, DIZZINESS OR NAUSEA. PATIENT HAS PAIN TO LEGS WHEN SQUEEZED DUE TO FALL YEARS AGO; CANNOT TOLERATE PRESSURE ON LEGS. NSR ON TELE; OXYGEN SATURATION ABOVE 90% ON 4LPM VIA NC (BASELINE REPORTED IS 3-4). NYSTATIN CREAM TO FOLDS CHRONIC ISSUE AT HOME BUT PATIENT REPORTS SHE DOESNT USE NYSTATIN OFTEN AT HOME. PATIENT COMPLAINED OF BEING HUNGRY; CALLED STAFF RADIOGRAPHER AKIL; ORDER FOR CARDIAC ADA DIET; IF RESPIRATORY STATUS DECLINES THEN MAKE PATIENT NPO AGAIN AND CBG Q6. PIV S/L. ONE ASSIST TO BEDSIDE COMMODE; REPORTS SHE HASNT URINATED MUCH TODAY. PATIENT CURRENTLY RESTING IN BED; CALL LIGHT IN REACH; BED IN LOWEST POSISTION; BED ALARM ON; WILL CONTINUE TO MONITOR AND ASSESS UNTIL END OF SHIFT.
[2019-10-16 04:11] LABS: BASOPHILS ABSOLUTE AUTO 0.02 K/mm3 (0.00-0.23); BASOPHILS PERCENT AUTO 0 % (0-2); EOSINOPHILS PERCENT AUTO 0 % (0-6); Hematocrit 31.3 % (33.0-51.0); Hemoglobin 8.9 g/dL (11.5-16.0); IMMATURE GRAN ABSOLUTE AUTO 0.12 K/mm3 (0.00-0.10); IMMATURE GRAN PERCENT AUTO 1 % (0-1); LYMPHOCYTES ABSOLUTE AUTO 0.58 K/mm3 (0.84-5.20); LYMPHOCYTES PERCENT AUTO 5 % (21-46); MONOCYTES ABSOLUTE AUTO 0.04 K/mm3 (0.16-1.47); MONOCYTES PERCENT AUTO 0 % (4-13); Mean Corpuscular HGB 22.8 pg (26.0-34.0); Mean Corpuscular HGB Conc 28.4 g/dL (31.5-36.5); Mean Corpuscular Volume 80 fL (80-100); Mean Platelet Volume 10.8 fL (9.1-12.4); NEUTROPHILS PERCENT AUTO 93 % (41-73); Platelet Count 435 K/mm3 (150-400); RDW Coefficient Variation 16.2 % (11.7-14.2); RDW Standard Deviation 47.4 fL (35.1-46.3); White Blood Cell Count 11.46 K/mm3 (4.00-11.30)
[2019-10-16 04:26] LABS: Bun/Creatinine Ratio 20.2 (12.0-20.0); Calcium, Blood 8.7 mg/dL (8.5-10.1); Creatinine, Blood 0.99 mg/dL (0.40-1.00); Potassium, Blood 3.8 mmol/L (3.5-5.5)
--- NOTE | 2019-10-16 06:19 | NUR ---
PATIENT DYSPNEIC WITH MINIMAL ACTIVITY SUCH TO BEDSIDE COMMODE. SATS DROP TO 89% ON 3-4LPM VIA NC. VSS. PATIENT SLEPT ABOUT FOUR HOURS LAST NIGHT. WILL CONTINUE TO MONITOR AND ASSESS UNTIL END OF SHIFT.
--- NOTE | 2019-10-16 18:11 | NUR ---
SHIFT NOTE PT HAS BEEN RESTING WELL IN BED T/O DAY. WAS PLACED ON 3L O2 WHICH IS BEING TOLERATED WELL WITH SPO2 OF 94%. PT DOES HAVE INCREASED SOB WITH MINIMAL EXERTION, HAS NOT BEEN VERY ACTIVE TODAY R/T SOB. EXPIRATORY WHEEZING NOTED, WITH LSIGHT RUB T/O, WHICH IS UNCHANGED T/O THE DAY. SKIN PWD AND INTACT. PT TALKING IN FULL SENTENCES, ANSWERING QUESTIONS APPROPRIATELY, LAUGHING AND JOKING WITH STAFF
--- NOTE | 2019-10-17 04:46 | NUR ---
SHIFT SUMMARY A/O, ABLE TO MAKE NEEDS KNOWN. COOPERATIVE WITH CARE. CALLS AND ANSWERS QUESTIONS APPROPRIATELY. TELEMETRY RUNNING SR /c BBB IN THE 90'S. C/O PAIN/DISCOMFORT TO L SIDE; MEDICATED PER EMAR. REMAINS ON 3L NC; WITH INTERMITTENT THERAPY FROM RT. REMAINS HYPERTENSIVE; HOWEVER, APPEARS ON TREND WITH PREVIOUS PRESSURES. APPEARED TO REST FOR ABOUT 3 HOURS. NO OTHER ACUTE CHANGES NOTED OVERNIGHT. BED IN LOWEST POSITION. CALL LIGHT AND BELONGINGS WITHIN REACH. WCTM. REPORT TO ONCOMING RN.
[2019-10-17 05:38] LABS: BASOPHILS ABSOLUTE AUTO 0.02 K/mm3 (0.00-0.23); BASOPHILS PERCENT AUTO 0 % (0-2); EOSINOPHILS PERCENT AUTO 0 % (0-6); Hematocrit 31.3 % (33.0-51.0); IMMATURE GRAN ABSOLUTE AUTO 0.16 K/mm3 (0.00-0.10); IMMATURE GRAN PERCENT AUTO 1 % (0-1); LYMPHOCYTES ABSOLUTE AUTO 0.55 K/mm3 (0.84-5.20); LYMPHOCYTES PERCENT AUTO 4 % (21-46); MONOCYTES ABSOLUTE AUTO 0.27 K/mm3 (0.16-1.47); MONOCYTES PERCENT AUTO 2 % (4-13); Mean Corpuscular HGB 22.6 pg (26.0-34.0); Mean Corpuscular HGB Conc 28.8 g/dL (31.5-36.5); Mean Corpuscular Volume 78 fL (80-100); NEUTROPHILS ABSOLUTE AUTO 12.81 K/mm3 (1.96-9.15); NEUTROPHILS PERCENT AUTO 93 % (41-73); Platelet Count 466 K/mm3 (150-400); RDW Coefficient Variation 16.3 % (11.7-14.2); RDW Standard Deviation 46.4 fL (35.1-46.3); Red Blood Cell Count 3.99 M/mm3 (3.80-5.20); White Blood Cell Count 13.81 K/mm3 (4.00-11.30)
[2019-10-17 06:02] LABS: Bun/Creatinine Ratio 33.3 (12.0-20.0); Calcium, Blood 9.3 mg/dL (8.5-10.1); Creatinine, Blood 1.05 mg/dL (0.40-1.00); Free Thyroxine 1.28 ng/dL (0.70-1.60); Potassium, Blood 3.8 mmol/L (3.5-5.5)
[2019-10-17 06:05] LABS: Thyroid Stimulating Hormone 0.307 uIU/mL (0.360-4.800); Triiodothyronine, Free 1.59 pg/mL (2.18-3.98)
--- NOTE | 2019-10-17 14:06 | NUR ---
Spiritual care visit attempted. Patient is sitting up in bed and alert.As I walk in patient's son-in-law comes in behind me. Patient states that she has no spiritual needs and that she would like to visit with her son-in-law but appreciated me coming by. I will continue to remain available to patient and family.
--- NOTE | 2019-10-17 15:15 | NUR ---
REPORT CALLED TO RACHELE ROSARIO ON MEDICAL FLOOR
--- NOTE | 2019-10-17 19:13 | NUR ---
SHIFT SUMMARY RECEIVED PT TO RM 338 FROM PCU 8 VIA W/C. A&O, LUÍS AND CO-OP. PT ABLE TO TX SELF TO BED, BUT DOES APPEAR TO BECOME SOB VERY EASILYY WITH ANY MOVEMENT. PT ADMITTED FOR PNM. PER REPORT, PT USES 4-5L O2 AT BASELINE HOME O2. PT HAS BEEN ON 3L O2 TO PRESENT HERE. PT IS MORBIDLY OBESE AND A LITTLE SHAKEY ON HER OWN, BUT ABLE TO TX TO BSC WITH SBA. MULTIPLE FAMILY IN TO VISIT THIS AFTERNOON AND EVENING. NO FURTHER NEEDS TO PRESENT. CALL LT IN REACH.
--- NOTE | 2019-10-18 00:04 | NUR ---
BEGINNING SHIFT SUMMARY ASSUMED CARE OF PT AT 1900. PT IS A/O X4, DENIES N/T IN EXTREMITIES. HEART SOUNDS REGULAR, DENIES CP AT THIS TIME. LUNG SOUNDS WHEEZY WITH FINE CRACKLES AT THE BASES, RT CONSULTED, BREATHING TREATMENTS ADMINISTERED, PT ON 3L NC, SATURATIONS ABOVE 90%, DENIES SOB AT THIS TIME. PT IS VERY ANXIOUS AT TIMES AND HER RESPIRAIONS WILL INCREASE BUT SATURATIONS ARE NORMAL, PT TOLD TO TAKE DEEP BREATHS AND FOCUS ON BREATHING. PT CONCERNED ABOUT IV BEING INFILTRATED, NEW DRESSING APPLIED. PT IS CURRENTLY SLEEPING, CALL LIGHT IN REACH, BED IN LOWEST POSTION, WILL CONTINUE TO MONITOR.
--- NOTE | 2019-10-18 03:59 | NUR ---
END SHIFT SUMMARY PT CONTINUED TO COUGH DURING THE NIGHT, IT WAS A HACKING WET COUGH, PT STATES THAT THE STUFF SHE IS COUGHING OUT IS MORE CLEAR. PT DENIES WANTING BREATHING TREATMENT. PT DID NOT SLEEP WELL DURING THE NIGHT IN BETWEEN COUGHING AND USING THE BSC. CALL LIGHT IN REACH, BED IN LOWST POSTION, WILL CONTINUE TO MONITOR UNTIL DAYSHIFT NURSE ARRIVES.
[2019-10-18 05:38] LABS: Base Excess Venous 4.2 mmol/L; Bicarbonate Venous 27.8 mmol/L (24.0-30.0); PCO2 Venous 45.2 mmHg (38-42); PO2 Venous 116 mmHg (38-42); pH Blood Venous 7.41 (7.34-7.37)
[2019-10-18 05:46] LABS: BASOPHILS ABSOLUTE AUTO 0.03 K/mm3 (0.00-0.23); BASOPHILS PERCENT AUTO 0 % (0-2); EOSINOPHILS PERCENT AUTO 0 % (0-6); Hematocrit 30.3 % (33.0-51.0); Hemoglobin 8.7 g/dL (11.5-16.0); IMMATURE GRAN ABSOLUTE AUTO 0.29 K/mm3 (0.00-0.10); IMMATURE GRAN PERCENT AUTO 2 % (0-1); LYMPHOCYTES ABSOLUTE AUTO 0.64 K/mm3 (0.84-5.20); LYMPHOCYTES PERCENT AUTO 5 % (21-46); MONOCYTES ABSOLUTE AUTO 0.43 K/mm3 (0.16-1.47); MONOCYTES PERCENT AUTO 3 % (4-13); Mean Corpuscular HGB 22.7 pg (26.0-34.0); Mean Corpuscular HGB Conc 28.7 g/dL (31.5-36.5); Mean Corpuscular Volume 79 fL (80-100); Mean Platelet Volume 10.7 fL (9.1-12.4); NEUTROPHILS ABSOLUTE AUTO 11.18 K/mm3 (1.96-9.15); NEUTROPHILS PERCENT AUTO 89 % (41-73); Platelet Count 494 K/mm3 (150-400); RDW Coefficient Variation 16.4 % (11.7-14.2); RDW Standard Deviation 46.4 fL (35.1-46.3); Red Blood Cell Count 3.83 M/mm3 (3.80-5.20); White Blood Cell Count 12.57 K/mm3 (4.00-11.30)
[2019-10-18 06:07] LABS: Bun/Creatinine Ratio 39.5 (12.0-20.0); Calcium, Blood 9.1 mg/dL (8.5-10.1); Creatinine, Blood 1.14 mg/dL (0.40-1.00); Potassium, Blood 4.4 mmol/L (3.5-5.5)
--- NOTE | 2019-10-18 14:58 | NUR ---
SHIFT SUMMARY PT AWAKE DURING SHIFT REPORT. PT REPORTED THAT SHE SLEPT BETTER LAST NIGHT. PT UP TO BTHRM TODAY INSTEAD OF USING BSC, TRYING TO GET HERSELF READY TO GO HOME. DR MARES IN TO SEE PT THIS AM. NEW ORDERS TO BE PLACED. IV SITE TO D/C'D WNL. ABX CHANGED TO PO. PT HAVING VISITORS AGAIN TODAY. PLEASANT AND CO-OP WITH CARE. STILL SOB WITH EXERTION, BUT ABLE TO MANAGE. POSSIBLE D/C TO HOME TOMORROW. DENIED FURTHER NEEDS. CALL LT IN REACH.
--- NOTE | 2019-10-19 04:05 | NUR ---
SHIFT SUMMARY ASSUMED CARE OF PT AT 1900. PT IS A/O X4, DENIES N/T IN EXTREMITIES. HEART SOUNDS REGULAR, DENIES CP. LUNG SOUNDS CRACKLES AT THE BASES, PT STATES SHE FEELS MUCH BETTER THAN YESTERDAY BUT STILL PANTS EVEN THOUGH SHE KNOWS HER O2 IS IN NORMAL RANGE, PT CURRENTLY ON 3L NC, DENIES SOB AT THIS TIME BUT HAS DYPNEA WITH EXCERTION, PT IS SUPOSED TO GET O2 EVALUATION IN THE AM BEFORE DISCHARGE. NO ACUTE CHANGES NOTED T/O THE NIGHT, PT SLEPT MOST OF THE NIGHT EXCEPT TO USE THE BATHROOM. CALL LIGHT IN REACH, BED IN LOWSET POSITION, WILL CONTNIUE TO MONITOR UNTIL DAYSHIFT NURSE ARRIVES.
[2019-10-19] MEDS ORDERED: AZIT250 PO (11:54)
[2019-10-19] MEDS ORDERED: PRED20 PO (11:55)
[2019-10-19] MEDS ORDERED: CEFU500T30 PO (11:55)
--- NOTE | 2019-10-19 13:14 | NUR ---
DISCHARGED TO HOME WITH BELONGINGS AND INSTRUCTIONS AT 1300. SHE HAS HER PORTABLE O2 WITH HER AND A CONCENTRATOR AT HOME. SHE IS AT HER BASELINE OF 3L. I DID NOT SEE ANY THRUSH IN HER MOUTH. SHE HAD NO COMPLAINTS EXCEPT SOB WITH ACTIVITY AND FEELING TIRED.
== END 2019-10-19 13:08 | disposition home health service (06) | DRG 871 ==
LOC: ER 15:20 → PCU 17:46 → MEDS 17:46 → PCU 18:20 → MEDS 10-17 15:34
PROVIDERS: Nurse Practitioner Acute Care; Physician Assistant; ADMIT Internal Medicine
DX: A41.9 Sepsis, unspecified organism (principal); J96.21 Acute and chronic respiratory failure with hypoxia; J18.9 Pneumonia, unspecified organism; I50.32 Chronic diastolic (congestive) heart failure; J44.1 Chronic obstructive pulmonary disease with (acute) exacerbation; E66.2 Morbid (severe) obesity with alveolar hypoventilation; N17.9 Acute kidney failure, unspecified; J44.0 Chronic obstructive pulmonary disease with (acute) lower respiratory infection; Z68.42 Body mass index [BMI] 45.0-49.9, adult; R65.20 Severe sepsis without septic shock; K59.09 Other constipation; K21.9 Gastro-esophageal reflux disease without esophagitis; E03.9 Hypothyroidism, unspecified; I48.0 Paroxysmal atrial fibrillation; N18.3 Chronic kidney disease, stage 3 (moderate); E11.22 Type 2 diabetes mellitus with diabetic chronic kidney disease; E11.42 Type 2 diabetes mellitus with diabetic polyneuropathy; D63.1 Anemia in chronic kidney disease; Z99.81 Dependence on supplemental oxygen; Z88.2 Allergy status to sulfonamides; Z88.8 Allergy status to other drugs, medicaments and biological substances; Z79.84 Long term (current) use of oral hypoglycemic drugs; Z79.899 Other long term (current) drug therapy
CPT/HCPCS: 0099U; 36415; 36600; 71045; 80048; 80053; 82728; 82803; 82947; 83540; 83550; 83605; 83880; 84439; 84443; 84481; 84484; 85025; 87040; 93005; 93010; 94640; 94760; 96365; 96367; 96375; 97162; 99285-25; A9270; A9270-GY; J0456; J0696; J1650; J2930; J7050; J7512

== ENCOUNTER 2019-10-29 20:55 | Inpatient (IN) | payer OTHER ==
[~2019-10-29] VITALS: Ht 152.4 cm; Wt 107.0 kg
[~2019-10-29 20:55] MED LIST changes: +AZIT250 PO; +BUDE6HFA INH; +CEFU500T30 PO; +CLOB.05TO; +COMBIVENT RESPIM4 GM; +Ex-Lax15 MG PO; +JARDIANCE25 MG PO; +METF500C; +METFORMIN HCL500 M3 PO; +Neurontin800 MG PO; +PRED20 PO; +Pedi-Dri 100,0060 GM TOP; +Symbicort 16010.2 GM INH; +TRAZ50 PO; +XARELTO20 M1 PO; +ZYRTEC10 M2 PO
[2019-10-29 21:23] LABS: PCO2 Arterial 44.9 mmHg (35-45); PO2 Arterial 79.7 mmHg (80-100); pH Blood Arterial 7.42 (7.35-7.45)
[2019-10-29 21:31] LABS: BASOPHILS ABSOLUTE AUTO 0.05 K/mm3 (0.00-0.23); BASOPHILS PERCENT AUTO 0 % (0-2); EOSINOPHILS ABSOLUTE AUTO 0.11 K/mm3 (0.00-0.68); EOSINOPHILS PERCENT AUTO 1 % (0-6); Hemoglobin 9.8 g/dL (11.5-16.0); IMMATURE GRAN ABSOLUTE AUTO 0.43 K/mm3 (0.00-0.10); IMMATURE GRAN PERCENT AUTO 3 % (0-1); LYMPHOCYTES ABSOLUTE AUTO 2.17 K/mm3 (0.84-5.20); LYMPHOCYTES PERCENT AUTO 15 % (21-46); MONOCYTES ABSOLUTE AUTO 1.24 K/mm3 (0.16-1.47); MONOCYTES PERCENT AUTO 9 % (4-13); Mean Corpuscular HGB 22.6 pg (26.0-34.0); Mean Corpuscular HGB Conc 28.8 g/dL (31.5-36.5); Mean Corpuscular Volume 78 fL (80-100); NEUTROPHILS ABSOLUTE AUTO 10.58 K/mm3 (1.96-9.15); NEUTROPHILS PERCENT AUTO 73 % (41-73); Platelet Count 374 K/mm3 (150-400); RDW Coefficient Variation 17.8 % (11.7-14.2); RDW Standard Deviation 48.7 fL (35.1-46.3); Red Blood Cell Count 4.34 M/mm3 (3.80-5.20); White Blood Cell Count 14.58 K/mm3 (4.00-11.30)
[2019-10-29 21:59] LABS: Alanine Aminotransfer (ALT/SGP 60 U/L (12-78); Albumin, Blood 3.1 g/dL (3.4-5.0); Albumin/Globulin Ratio 0.8 (0.8-1.8); Alk Phos 100 U/L (50-136); Anion Gap 7 mmol/L (6-16); Aspartate Aminotrans (AST/SGOT 22 U/L (12-37); Bilirubin, Total 0.6 mg/dL (0.1-1.0); Blood Urea Nitrogen 13 mg/dL (8-24); CO2, Blood 29 mmol/L (21-32); Calcium, Blood 8.5 mg/dL (8.5-10.1); Chloride, Blood 102 mmol/L (98-108); Globulin, Blood 3.8 g/dL (2.2-4.0); Glomerular Filtration Rate 57 (60-); Glucose, Blood 187 mg/dL (70-99); Potassium, Blood 3.9 mmol/L (3.5-5.5); Sodium, Blood 138 mmol/L (136-145); Total Protein, Blood 6.9 g/dL (6.4-8.2); Troponin I <0.015 ng/mL (0.000-0.040)
--- NOTE | 2019-10-30 01:00 | NUR ---
PT ADMITTED TO ROOM ICU 10 FROM ED. REPORT RECEIVED. PT WAS SLIDE TRANSFERRED WITH 5 PERSONS TO BED FROM [facility]. PT VERY ANXIOUS AND TRIES TO HELP OUT WHICH NOTED TO INCREASE HER ANXIOUSNESS AND HER DYSPNEA. ON BIPAP AT 30 PERCENT FIO2. PT DOES CALM WITH GENTLE REDIRECTION. ABLE TO CALM HER RESPIRATION RATE FROM 30'S DOWN TO 20'S BPM. OXYGEN SATURATION MAINTAINS > 90 PERCENT. WILL REVIEW CHART AND PLAN OF CARE FOR THIS PT.
--- NOTE | 2019-10-30 03:00 | NUR ---
PLACED LANGLEY CATHETER SECONDARY TO PT'S SEVERE EXERTIONAL DYSPNEA. PT TOLERATES THIS WELL. 2 MG MORPHINE WAS GIVEN PER ONE TIME ORDER WHICH ALLOWED PT TO LAY BACK TO APPROX 15 DEGREES FOR CATHETER TO BE PLACED. AFTER CATHETER WAS PLACED, PT BROUGHT BACK UP TO MCKENNA POSITION. PT STATES SHE IS FEELING IT EASIER TO BREATHE AFTER MORPHINE. HAS TOLERATED BIPAP MASK WELL. WILL CONTINUE TO MONITOR.
[2019-10-30 03:25] LABS: Source, Urine Catheter
[2019-10-30 03:28] LABS: Bilirubin, Urine Neg (Neg); Blood, Urine 4+ (Neg); Glucose Qualitative, Urine 4+ (Neg); Ketones, Urine 2+ (Neg); Leukocyte Esterase, Urine Neg (Neg); Nitrite, Urine Neg (Neg); Protein, Urine Neg (Neg); Specific Gravity, Urine 1.015 (1.003-1.022); Urobilinogen, Urine NORM (Normal)
[2019-10-30 03:30] LABS: Appearance, Urine Clear (Clear); Color, Urine Yellow (P-Yellow)
[2019-10-30 03:33] LABS: Bacteria Mod /hpf; Squamous Epithelial Cells Not Seen /hpf (Few); White Blood Cells, Urine 0-2 /hpf (0-5)
[2019-10-30 03:39] LABS: BASOPHILS ABSOLUTE AUTO 0.05 K/mm3 (0.00-0.23); BASOPHILS PERCENT AUTO 0 % (0-2); EOSINOPHILS PERCENT AUTO 0 % (0-6); Hematocrit 33.7 % (33.0-51.0); Hemoglobin 9.6 g/dL (11.5-16.0); IMMATURE GRAN ABSOLUTE AUTO 0.42 K/mm3 (0.00-0.10); IMMATURE GRAN PERCENT AUTO 3 % (0-1); LYMPHOCYTES ABSOLUTE AUTO 0.16 K/mm3 (0.84-5.20); LYMPHOCYTES PERCENT AUTO 1 % (21-46); MONOCYTES ABSOLUTE AUTO 0.08 K/mm3 (0.16-1.47); MONOCYTES PERCENT AUTO 1 % (4-13); Mean Corpuscular HGB 22.6 pg (26.0-34.0); Mean Corpuscular HGB Conc 28.5 g/dL (31.5-36.5); Mean Corpuscular Volume 79 fL (80-100); Mean Platelet Volume 10.8 fL (9.1-12.4); NEUTROPHILS ABSOLUTE AUTO 12.69 K/mm3 (1.96-9.15); NEUTROPHILS PERCENT AUTO 95 % (41-73); Platelet Count 336 K/mm3 (150-400); RDW Coefficient Variation 17.7 % (11.7-14.2); RDW Standard Deviation 49.3 fL (35.1-46.3); Red Blood Cell Count 4.25 M/mm3 (3.80-5.20)
[2019-10-30 03:56] LABS: Bun/Creatinine Ratio 14.6 (12.0-20.0); Calcium, Blood 8.3 mg/dL (8.5-10.1); Creatinine, Blood 1.03 mg/dL (0.40-1.00); Potassium, Blood 3.7 mmol/L (3.5-5.5)
[2019-10-30 04:14] LABS: Adenovirus Not Detected (NOT DETECT); Bordetella pertussis Not Detected (NOT DETECT); Chlamydophila pneumoniae Not Detected (NOT DETECT); Coronavirus 229E Not Detected (NOT DETECT); Coronavirus HKU1 Not Detected (NOT DETECT); Coronavirus NL63 Not Detected (NOT DETECT); Coronavirus OC43 Not Detected (NOT DETECT); Human Metapneumovirus Detected (NOT DETECT); Human Rhinovirus/Enterovirus Not Detected (NOT DETECT); Influenza A/2009-H1 Not Detected (NOT DETECT); Influenza A/H1 Not Detected (NOT DETECT); Influenza A/H3 Not Detected (NOT DETECT); Influenza B Not Detected (NOT DETECT); Mycoplasma pneumoniae Not Detected (NOT DETECT); Parainfluenza Virus 1 Not Detected (NOT DETECT); Parainfluenza Virus 2 Not Detected (NOT DETECT); Parainfluenza Virus 3 Not Detected (NOT DETECT); Parainfluenza Virus 4 Not Detected (NOT DETECT); Respiratory Syncytial Virus Not Detected (NOT DETECT)
--- NOTE | 2019-10-30 06:09 | NUR ---
PT'S RESPIRATORY STATUS HAS IMPROVED. NO LONGER WITH RESPIRATORY RATES >24. PT TOLERATES BIPAP MASK WELL. HAS HAD SHORT BREAK FOR ORAL CARE. PT TOLERATES THIS WELL. URINE OUTPUT Q.S. HAVE NEEDED INSULIN PER SSI FOR ELEVATED GLUCOSE LEVELS. WILL CONTINUE TO MONITOR PT, AND WILL REPORT OFF TO ONCOMING RN.
--- NOTE | 2019-10-30 07:01 | NUR ---
Receieved report from Ramiro ROSARIO. Patient is sitting up in bed with BIPAP in place and settings are 14/8 at 30% FiO2 with sats mid 90%'s. She is able to follow directions and communicate her needs. She has 16 Fr Torres draining to gravity yellow urine. She has 18 ga RH IV and 18 ga LFA IV, both dressings intact and sites WNL's and are flushed and SL'd. Daughter called for update. She states mild pain left side and has headache.
--- NOTE | 2019-10-30 10:21 | NUR ---
Dr rolle by to see patient and talked with Dr Galindo and told him no pulmonary consult. Patient is currently on 4 L O2 via NC and sats mis 90%'s. She has been made med no tele status. Patient has no concerns . She has been made to ada diet and will change CBG to AC/HS.
--- NOTE | 2019-10-30 13:24 | NUR ---
Patients family in room at bedside. Patient tolerating liquids and is awaiting ADA diet. Alert and oriented and remains on 4L O2 via NC and sats mid 90%'s. No other significant changes patient med no tele status.
--- NOTE | 2019-10-30 15:48 | NUR ---
Patient resting in bed now that family has gone home. RT was giving breathing treatment and at the end placed her on 3 L O2 via NC and sats mid 90%. All Other VSS See EMR. She has no current needs.
--- NOTE | 2019-10-30 18:19 | NUR ---
Patient is currently sleeping on 3L O2 and sats mid 90%'s. VSS, See EMR. She has been tolerating liquids well, but poor apetite. RR 20-30. No significant changes most of shift. She remains Med no tele.
--- NOTE | 2019-10-30 18:46 | NUR ---
Patient request to place some stay dries under her as she was passing gas. While repositioning her she started to panic and exacerbated COPD moment and needed to place BIPAP mask with 7L bleed in. Her sats prior to mask dropped to 58% and came up quickly to 99% with mask and bleedin. She is on bedpan and BIPAP currently with sats 99%.
--- NOTE | 2019-10-30 19:58 | NUR ---
ASSUMED CARE OF PT AT 1915. REPORT RECEIVED AT BEDSIDE. PT PRESENTS IN BED SITTING UPRIGHT IN TRIPOD POSITION. PT HAS BIPAP MASK ON AND IS VERY LABORED WITH RESPIRATIONS. PER REPORT, PT HAS A "PANIC ATTACK" WHILE BEING LAID SUPINE FOR BEDDING CHANGE. PT BECOMES VERY ANXIOUS AND IS HAVING TROUBLE RECOVERING. IS CURRENTLY BACK TO 3 L/M OXYGEN PER NASAL CANNULA AND HAS BEEN GIVEN A BREATHING TREATMENT BY RESPIRATORY THERAPY. WILL CONTINUE TO MONITOR PT CLOSELY.
--- NOTE | 2019-10-30 21:34 | NUR ---
PT TRANSFERRED OUT OF UNIT AT 2119. REPORT GIVEN TO MEDICAL FLOOR RN IN SBAR FASHION. ALLOWED FOR QUESTIONS. PT AWARE AND ACCEPTING OF TRANSFER. PT LEAVES ICU IN STABLE CONDITION. ON SUPPLEMENTAL OXYGEN.
--- NOTE | 2019-10-30 21:35 | NUR ---
ICU 10 TRANSFER. REPORT TAKEN FROM CASSY ROSARIO. FOUR PERSON TRANSFER USING SLIDER/LIFT SHEET. ON 3L O2 NC. ANXIOUS DURING TRANSFER. RT SETUP BIPAP MACHINE FOR PATIENT TO USE LATER. AXOX 3 AND BEDFAST. DENIES PAIN AND N/V. CALL LIGHT IN REACH.
--- NOTE | 2019-10-30 22:29 | NUR ---
PATIENT LESS ANXIOUS AFTER TRANSFER. RESTING IN BED ON 3L O2 NC BASELINE WATCHING TV. LANGLEY PATENT AND DRAINING. CBG 270. REPORTS WILL PUT ON BPAP WHEN READY AND WILL ASK FOR HELP. CALL LIGHT IN REACH.
--- NOTE | 2019-10-30 22:41 | NUR ---
PATIENT ON BPAP WITH 3L O2 BLEED IN. REPORTS SHE IS CLAUSTROPHOBIC AND WILL TRY MASK OUT TO SEE HOW SHE TOLERATES IT. RESTING WATCHING TV. CALL LIGHT IN REACH.
--- NOTE | 2019-10-30 23:11 | NUR ---
ON BIPAP 3 L O2 BLEED IN STATING 96% ON CONTINUOUS PULSE OXIMETRY.
--- NOTE | 2019-10-31 02:30 | NUR ---
USED BIPAP FOR 45 MINUTES FIRST TIME SWITCHING OFF TO NC AND THAN USED BIPAP FOR HR AND A HALF SECOND TIME. NOW STATING 94% ON 3L O2 NC. HR RATE UP TO 120'S WHEN UP TO BSC WITH TWO MAX ASSIST AND SOB W/EXERTION. RECOVERS ONCE SETTLED BACK INTO BED. CALL LIGHT IN REACH.
--- NOTE | 2019-10-31 03:32 | NUR ---
SHIFT SUMMARY PATIENT ANXIOUS FOR SHORT PERIODS T/O SHIFT WHEN TRANSFERING OR USING A BSC. AXOX 3 AND TWO MAX ASSIST WITH FWW/GAIT BELT. HR INCREASES FROM LOW 100'S TO 120'S WHEN TRANSFERRING TO BSC. LANGLEY PATENT AND DRAINING. ON 3L O2 NC BASELINE. USING BIPAP WITH 3 L O2 BLEED IN STATING 96%. PATIENT REPORTS FEELING CLAUSTROPHOBIC WITH MASK ON AND TOLERATED FOR 45 MINUTE FIRST TIME AND HOUR AND A HALF SECOND TIME. SWITCHES BACK OFF TO NC TO TAKE A BREAK. STATING 94% ON 3L O2 NC ON CONTINUOUS PULSE OXIMETRY. VSS/AFEBRILE. DENIES PAIN AND N/V. CBG 270. ON IV SOLU-MEDROL. PIVS REMAINS INTACT. COOPERATIVE WITH CARE. CALL LIGHT IN REACH. BED IN LOWEST POSITION. WILL CONTINUE TO MONITOR UNTIL DAY SHIFT NURSE ASSUMES CARE.
--- NOTE | 2019-10-31 04:35 | NUR ---
PULMONARY CONSULT CALLED IN FOR DR. LASHAUN BLANCA ([facility]) ANSWERING SERVICE FOR THE MORNING 07:00, 10/31/19.
--- NOTE | 2019-10-31 04:46 | NUR ---
PATIENT ANXIOUS AND DESTATED TO LOW 80'S WITH BILATERAL LEG PAIN ONSET. TRIED TO MOVE HER LEGS OFF SIDE OF BED QUICKLY FOR RELIEF. REQUESTED TYLENOL AND 650 MG GIVEN PER EMAR. PATIENT BACK STATING 92% O2 ON 3L O2 NC CONTINUOUS PULSE OXIMETRY. LEGS BACK IN BED AND PATIENT RESTING COMFORTABLY. REPORTS WILL TRY TO SLEEP. CALL LIGHT IN REACH.
[2019-10-31 05:43] LABS: BASOPHILS ABSOLUTE AUTO 0.03 K/mm3 (0.00-0.23); BASOPHILS PERCENT AUTO 0 % (0-2); EOSINOPHILS PERCENT AUTO 0 % (0-6); Hemoglobin 9.5 g/dL (11.5-16.0); IMMATURE GRAN ABSOLUTE AUTO 0.26 K/mm3 (0.00-0.10); IMMATURE GRAN PERCENT AUTO 2 % (0-1); LYMPHOCYTES ABSOLUTE AUTO 0.52 K/mm3 (0.84-5.20); LYMPHOCYTES PERCENT AUTO 3 % (21-46); MONOCYTES ABSOLUTE AUTO 0.38 K/mm3 (0.16-1.47); MONOCYTES PERCENT AUTO 2 % (4-13); Mean Corpuscular HGB 22.4 pg (26.0-34.0); Mean Corpuscular HGB Conc 27.9 g/dL (31.5-36.5); Mean Corpuscular Volume 80 fL (80-100); Mean Platelet Volume 11.2 fL (9.1-12.4); NEUTROPHILS ABSOLUTE AUTO 15.62 K/mm3 (1.96-9.15); NEUTROPHILS PERCENT AUTO 93 % (41-73); Platelet Count 365 K/mm3 (150-400); RDW Coefficient Variation 18.5 % (11.7-14.2); RDW Standard Deviation 51.1 fL (35.1-46.3); Red Blood Cell Count 4.25 M/mm3 (3.80-5.20); White Blood Cell Count 16.81 K/mm3 (4.00-11.30)
[2019-10-31 05:57] LABS: Bun/Creatinine Ratio 22.1 (12.0-20.0); Calcium, Blood 8.4 mg/dL (8.5-10.1); Creatinine, Blood 1.04 mg/dL (0.40-1.00); Potassium, Blood 3.8 mmol/L (3.5-5.5)
--- NOTE | 2019-11-01 04:45 | NUR ---
SHIFT SUMMARY: PATIENT IS A&OX4, POOR TOLERANCE TO ANY ACTIVITY, SATS DROP BELOW 90% ON 3L NC. 02 IS INCREASED TO 5L FOR RECOVERY FROM ACTIVITY. PATIENT IS VERY ANXIOUS AND HAS A DIFFICULT TIME TOLERATING BIPAP. PRN ATIVAN WAS GIVEN X1 WITH GOOD EFFECT, PATIENT WAS ABLE TO TOLERAT BPAP FOR 3.5 HOURS. PATIENT REFUSED REPEAT DOSE OF ATIVAN FOR ANXIETY BUT WAS ABLE TO FALL ASLEEP AGAIN WITH 3L NC IN PLACE. SAT ON SL DURING SLEEP IS 94% HEART RATE IS 94.
--- NOTE | 2019-11-01 08:20 | NUR ---
PT PLEASANT COOP A/O. ANXIETY CONTINUES. EUGENIO WITH EXERTION, BECOMES SOB. STATES SOME PAIN IN HANDS AND HIPS. STATES ARTHRITIS. MED PER EMAR. H/R REG, NO MURMER NOTED. NO TELE. LUNGS DIM T/O WITH CRACKLES LIGHT IN BILAT BASES. ON 3L O2. RESP EASY. UNLABORED. BT X4 LAST BM YEST PER PT. VOIDS 1 ASST BSC. BED IN LOW POSITION, CALL LITE IN REACH, CALLS APPROP
--- NOTE | 2019-11-01 18:26 | NUR ---
PT QUITE PLEASANT COOP TODAY.. CONTINUES ANX. REFUSED ATIVAN TWICE TODAY. DAUGHTERS IN TO VISIT. CONTINUES ON 3L O2. 5 WHEN UP. USING BSC. SOME +1 EDEMA IN RT LOW LEG AND FOOT. PT STATES NOT ABNORMAL FOR SOME SWELLING. NO OTHER CONCERNS AT THIS TIME. BED IN LOW POSITION, CALL LITE IN REACH, CALLS APROP
--- NOTE | 2019-11-02 06:56 | NUR ---
SHIFT SUMMARY: PATIENT IS A&OX4, SOB WITH ACTIVITY WITH 3LNC ON. HEART RATE ELEVATION IS ELEVATED WITH ACTIVITY, 02 IS INCREASED TO 5L WITH ACTIVITY. PATIENT REQUESTED CONTINUOS PULSE OX BE LEFT ON FOR HER OWN PEACE OF MIND. PATIENT WAS ANXIOUS BUT DENIED NEED OF ATIVAN FOR ANXIETY.
--- NOTE | 2019-11-02 17:32 | NUR ---
SUMMARY PT IS A/O X4, SHE STATE CONTINUING MALAISE, WEAKNESS/FATIGUE. SOB THAT INCREASES w EXERTION. LUNGS DECREASED T/O, COARSE BASES, O2 @ 3.5L, RT ASSISTING w O2 NEEDS & NEB TX'S. DR VALENTINO ORDER BNP TODAY, SOMEWHAT ELEVATED @ 234, CHANGE LASIX TO IV. PT STATED INCREASED JITTERY FEELING, THINKS R/T SOLUMEDROL, CHANGE TO ORAL PREDNISONE. HR IRREG, HX AFIB, HR HAS BOUNCED BETWEEN 70-140'S, DR VALENTINO AWARE, SCHEDULED CARDIAZEM CONTINUES. WILL CONTINUE TO MX. DR VALENTINO CLARIFY PT NOT POSITIVE FOR RSV, REVIEW RESULTS OF TESTS, ANSWER QUESTIONS w PT & DAUGHTER.
--- NOTE | 2019-11-03 06:28 | NUR ---
SHIFT SUMMARY: PATIENT IS A&OX4. REPORTED HEADACHE PAIN 7/10 AND WAS GIVEN TYLENOL WITH GOOD EFFECT. PATIENT REPORTED SLEEPING WELL. HEART RATE DID HAVE SOME ELEVATION WITH TRANSFER [place] [facility] [place] BUT MUCH IMPROVED AFTER START OF CARDIZEM. SATS ARE MAINTAINED ABOVE 93% ON 3L NC.
[2019-11-03 06:38] LABS: Bun/Creatinine Ratio 41.1 (12.0-20.0); Calcium, Blood 8.6 mg/dL (8.5-10.1); Creatinine, Blood 0.97 mg/dL (0.40-1.00); Potassium, Blood 4.5 mmol/L (3.5-5.5)
--- NOTE | 2019-11-03 16:36 | NUR ---
SHIFT SUMMARY- PT A/O, PLEASANT AND COOPERATIVE. PT DENIES ANY PAIN T/O THE DAY. LS DIMINIHED, ON 3L N/C WHICH IS PT BASELINE. SOB WITH EXERTION AND OFTEN ANXIOUS BUT REFUSES ATIVAN SHE DOES NOT LIKE FOR IT MAKES HER FEEL. 2+ BLE EDEMA. PT INCONT AT TIMES. HR IRREG AND TACHY AT TIMES, SCHEDULED CARDIZEM GIVEN. NO OTHER ACUTE CHANGES THIS SHIFT.
--- NOTE | 2019-11-04 05:33 | NUR ---
SHIFT SUMMARY PT IS A 74 Y/O FEMALE, ADMITTED FOR ACUTE ON CHRONIC RESP FAILURE. SHE IS A&O X 3, AND A [place] TO [place] [facility] [place] PT IS VERY DYSPNEIC WITH EXERTION, TALKS IN SHORT SENTENCES, AND CANNOT TOLERATE LYING ON HER BACK OR RIGHT SIDE DUE TO SOB. PT SLEPT OFF AND ON DURING THE NIGHT, AND WAS MEDICATED ONCE FOR L HIP AND BACK PAIN WITH PRN TYLENOL. PT'S HR WAS ELEVATED IN THE 110S, WITH A HX OF AFIB. ALL OTHER VITALS STABLE. NO COMPLAINTS OF NAUSEA. NO OTHER ACUTE CHANGES IN PT CONDITION NOTED DURING THE NIGHT. WILL CONTINUE TO MONITOR AND TREAT PER EMAR UNTIL HAND OFF TO DAY SHIFT RN.
[2019-11-04 11:26] LABS: Bun/Creatinine Ratio 37.6 (12.0-20.0); Calcium, Blood 8.9 mg/dL (8.5-10.1); Creatinine, Blood 1.01 mg/dL (0.40-1.00); Potassium, Blood 4.6 mmol/L (3.5-5.5)
--- NOTE | 2019-11-04 18:30 | NUR ---
PT SEEN BY PHYSICAL THERAPY TODAY, RECOMMENDED HOME HEALTH. PT AT 3LNC, WHICH IS HER BASELINE. NO ACUTE CHANGES NOTED THIS SHIFT, WILL CONTINUE TO MONITOR AND REPORT TO ONCOMING RN
--- NOTE | 2019-11-05 04:14 | NUR ---
SHIFT SUMMARY ADMITTED FOR ACUTE ON CHRONIC RESP FAILURE W/HYPOXEMIA. FULL CODE. ALSO FOUND TO HAVE PNEUMONIA. SHE IS ON 3 LPM O2, WHICH IS HER BASELINE. SHE IS A&O X4, 1 ASSIST, ADA DIET. ACHS CHEMSTICKS. HOPEFUL FOR DC TODAY W/HH. ON ORAL STEROIDS, EXPECT TAPER. HX: COPD, DIASTOLIC HF, AFIB, GERD. NO NEW ISSUES OR S/SX THIS SHIFT.
[2019-11-05] MEDS ORDERED: DILT180 PO (11:37)
[2019-11-05] MEDS ORDERED: BASAGLAR K100 UNIT/1 SC (11:38)
[2019-11-05] MEDS ORDERED: Prednisone10 MG PO (11:40)
--- NOTE | 2019-11-05 12:58 | NUR ---
discharge DISCHARGE INSTRUCTIONS REVIEWED WITH PATIENT AND HER SON. TEACHING ON USE OF LANTUS PEN REVIEWED AND PATIENT AND SON STATETHEY ARE COMFORTABLE WITH HOW TO ADMINISTER.
--- NOTE | 2019-11-05 13:03 | NUR ---
DISCHARGED VIA WHEELCHAIR ACCOMPANIED BY HER SON. VERBALIZES UNDERSTANDING OF DISCHARGE INSTRUCTIONS
[2019-11-17] MEDS ORDERED: EUTHYROX25 MCG PO (02:18)
[2019-11-26] MEDS ORDERED: Senna Plus Tab1 EACH PO (11:32)
[2019-11-26] MEDS ORDERED: GUAI600T33 PO (11:32)
[2019-11-26] MEDS ORDERED: PRED20 PO (11:33)
== END 2019-11-05 13:07 | disposition home or self-care (01) | DRG 190 ==
LOC: ER 20:55 → ICUW 22:52 → MEDS 22:52 → ICUW 23:53 → MEDS 10-30 21:25 → ENPENDDIS 11-05 10:55 → MEDS 11-05 13:07
PROVIDERS: Emergency Medicine; Hospitalist; Internal Medicine; Nurse Practitioner Acute Care; ADMIT Internal Medicine
DX: J44.0 Chronic obstructive pulmonary disease with (acute) lower respiratory infection (principal); J96.21 Acute and chronic respiratory failure with hypoxia; I50.32 Chronic diastolic (congestive) heart failure; Z68.42 Body mass index [BMI] 45.0-49.9, adult; J44.1 Chronic obstructive pulmonary disease with (acute) exacerbation; I48.0 Paroxysmal atrial fibrillation; J20.5 Acute bronchitis due to respiratory syncytial virus; E66.01 Morbid (severe) obesity due to excess calories; K21.9 Gastro-esophageal reflux disease without esophagitis; E03.9 Hypothyroidism, unspecified; G62.9 Polyneuropathy, unspecified; Z87.891 Personal history of nicotine dependence; E11.65 Type 2 diabetes mellitus with hyperglycemia; Z99.81 Dependence on supplemental oxygen; J20.8 Acute bronchitis due to other specified organisms
CPT/HCPCS: 0099U; 36415; 36600; 51702; 71045; 80048; 80053; 81001; 82803; 82947; 83605; 83880; 84145; 84484; 85025; 87040; 87086; 93005; 93010; 94640; 94644; 94660; 94760; 94762; 96365; 96367; 96375; 97161; 99291-25; A9270; A9270-GY; J0456; J0696; J1940; J2060; J2270; J2930; J3475; J7050; J7512

== ENCOUNTER 2019-12-01 13:44 | Inpatient (IN) | payer OTHER ==
[~2019-12-01] VITALS: Ht 152.4 cm; Wt 101.9 kg
[~2019-12-01 13:44] MED LIST changes: +BASAGLAR K100 UNIT/1 SC; +DILT180 PO; +EUTHYROX25 MCG PO; +GUAI600T33 PO; +Prednisone10 MG PO; +Senna Plus Tab1 EACH PO
[2019-12-01 14:14] LABS: PCO2 Arterial 45.2 mmHg (35-45); PO2 Arterial 54.9 mmHg (80-100); pH Blood Arterial 7.48 (7.35-7.45)
[2019-12-01 14:17] LABS: BASOPHILS ABSOLUTE AUTO 0.07 K/mm3 (0.00-0.23); BASOPHILS PERCENT AUTO 0 % (0-2); EOSINOPHILS ABSOLUTE AUTO 0.02 K/mm3 (0.00-0.68); EOSINOPHILS PERCENT AUTO 0 % (0-6); Hematocrit 38.2 % (33.0-51.0); Hemoglobin 10.8 g/dL (11.5-16.0); IMMATURE GRAN ABSOLUTE AUTO 0.55 K/mm3 (0.00-0.10); IMMATURE GRAN PERCENT AUTO 2 % (0-1); LYMPHOCYTES ABSOLUTE AUTO 1.57 K/mm3 (0.84-5.20); LYMPHOCYTES PERCENT AUTO 7 % (21-46); MONOCYTES ABSOLUTE AUTO 1.19 K/mm3 (0.16-1.47); MONOCYTES PERCENT AUTO 5 % (4-13); Mean Corpuscular HGB 22.7 pg (26.0-34.0); Mean Corpuscular HGB Conc 28.3 g/dL (31.5-36.5); Mean Corpuscular Volume 80 fL (80-100); Mean Platelet Volume 10.2 fL (9.1-12.4); NEUTROPHILS ABSOLUTE AUTO 20.12 K/mm3 (1.96-9.15); NEUTROPHILS PERCENT AUTO 86 % (41-73); NRBC ABSOLUTE 0.06 K/mm3 (0.00-0.02); NRBC Auto 0.3 /100 WBC (0.0-0.2); Platelet Count 444 K/mm3 (150-400); RDW Coefficient Variation 20.2 % (11.7-14.2); RDW Standard Deviation 57.8 fL (35.1-46.3); Red Blood Cell Count 4.75 M/mm3 (3.80-5.20); White Blood Cell Count 23.52 K/mm3 (4.00-11.30)
[2019-12-01 14:36] LABS: Alanine Aminotransfer (ALT/SGP 57 U/L (12-78); Albumin, Blood 3.1 g/dL (3.4-5.0); Albumin/Globulin Ratio 0.8 (0.8-1.8); Alk Phos 92 U/L (50-136); Anion Gap 8 mmol/L (6-16); Aspartate Aminotrans (AST/SGOT 17 U/L (12-37); Bilirubin, Total 0.8 mg/dL (0.1-1.0); Blood Urea Nitrogen 19 mg/dL (8-24); Bun/Creatinine Ratio 21.2 (12.0-20.0); CO2, Blood 30 mmol/L (21-32); Calcium, Blood 8.7 mg/dL (8.5-10.1); Chloride, Blood 95 mmol/L (98-108); Globulin, Blood 4.1 g/dL (2.2-4.0); Glomerular Filtration Rate >60 (60-); Glucose, Blood 294 mg/dL (70-99); Potassium, Blood 3.8 mmol/L (3.5-5.5); Sodium, Blood 133 mmol/L (136-145); Total Protein, Blood 7.2 g/dL (6.4-8.2); Troponin I <0.015 ng/mL (0.000-0.040)
[2019-12-01 17:16] LABS: Adenovirus Not Detected (NOT DETECT); Coronavirus 229E Not Detected (NOT DETECT)
[2019-12-01 17:17] LABS: Bordetella pertussis Not Detected (NOT DETECT); Chlamydophila pneumoniae Not Detected (NOT DETECT); Coronavirus HKU1 Not Detected (NOT DETECT); Coronavirus NL63 Not Detected (NOT DETECT); Coronavirus OC43 Not Detected (NOT DETECT); Human Metapneumovirus Not Detected (NOT DETECT); Human Rhinovirus/Enterovirus Not Detected (NOT DETECT); Influenza A/2009-H1 Not Detected (NOT DETECT); Influenza A/H1 Not Detected (NOT DETECT); Influenza A/H3 Not Detected (NOT DETECT); Influenza B Not Detected (NOT DETECT); Mycoplasma pneumoniae Not Detected (NOT DETECT); Parainfluenza Virus 1 Not Detected (NOT DETECT); Parainfluenza Virus 2 Not Detected (NOT DETECT); Parainfluenza Virus 3 Not Detected (NOT DETECT); Parainfluenza Virus 4 Not Detected (NOT DETECT); Respiratory Syncytial Virus Not Detected (NOT DETECT)
--- NOTE | 2019-12-01 18:48 | NUR ---
PT ARRIVED TO PCU FROM ERD @1705, PT IS HERE FOR RESPI FAILURE WITH AFIB RVR. PT ALERT AND ORIENTED X3, UNSURE OF DATE SOMETIMES SLOW TO RESPOND. PT CURRENTLY ON 7L OF 02 VIA OXYMIZER, TACHYPNEA AND SOB NOTED, LUNGS COARSE ON THE UPPER BASES DIMINISHED ON THE LOWER. PT ON IV ABO FOR POSS PNA, ALSO COVID R/O. PT ALREADY HAS NEGATIVE COVID TEST PREVIOUSLY, BUT IS RETESTING AGAIN DUE TO SYMPTOMS. PT CURRENTLY ON CARDIZEM DRIP INITIATED AT 5MG/HR, HRR AFIB ON THE 110'S-120'S, DENIES CHEST PAIN AT THIS TIME. PT CURRENTLY RESTING IN BED, ABLE TO MAKE NEEDS KNOWN. WILL GIVE REPORT TO ONCOMING SHIFT
[2019-12-01] MEDS ORDERED: Nexium40 MG PO (20:20)
[2019-12-01] MEDS ORDERED: ZYRTEC10 M1 PO (20:21)
[2019-12-01] MEDS ORDERED: Ex-Lax15 MG PO (20:22)
[2019-12-01] MEDS ORDERED: JARDIANCE25 MG PO (20:23)
[2019-12-01] MEDS ORDERED: Duoneb 2.5-0.5 M3 ML INH (20:26)
--- NOTE | 2019-12-01 22:57 | NUR ---
ASSUMED CARE OF PATIENT AT [facility] FROM HANNA Najera RN. PATIENT ALERT AND ORIENTED X4. PATIENT REPORTS SHE DOESNT GET UP OUT OF BED; INCONTINENT OF URINE; ATTENDS PLACED AND EXTRA PADS. PATIENT DENIES PAIN, NUMBNESS, TINGLING, DIZZINESS OR NAUSEA. PATIENT REPORTS SHE LIVES AT HOME AND HAS CAREGIVER ASSISTANCE. MED REC COMPLETED. AFIB ON TELE W/ RAT 90-110; CARDIZEM GTT AT 5ML/HR; OXYGEN SATURATION ABOVE 90% ON 6LPM VIA OXYMIZER (BASELINE IS 3 BUT REPORTS SHE HAS BEEN USING MORE LATELY). PATIENT CURRENTLY RESTING IN BED; CALL LIGHT IN REACH; BED IN LOWEST POSISTION; BED ALARM ON; WILL CONTINUE TO MONITOR AND ASSESS UNTIL END OF SHIFT.
[2019-12-02 04:09] LABS: BASOPHILS ABSOLUTE AUTO 0.03 K/mm3 (0.00-0.23); BASOPHILS PERCENT AUTO 0 % (0-2); EOSINOPHILS PERCENT AUTO 0 % (0-6); Hematocrit 31.6 % (33.0-51.0); Hemoglobin 9.1 g/dL (11.5-16.0); IMMATURE GRAN ABSOLUTE AUTO 0.33 K/mm3 (0.00-0.10); IMMATURE GRAN PERCENT AUTO 2 % (0-1); LYMPHOCYTES ABSOLUTE AUTO 0.89 K/mm3 (0.84-5.20); LYMPHOCYTES PERCENT AUTO 6 % (21-46); MONOCYTES ABSOLUTE AUTO 0.19 K/mm3 (0.16-1.47); MONOCYTES PERCENT AUTO 1 % (4-13); Mean Corpuscular HGB 22.9 pg (26.0-34.0); Mean Corpuscular HGB Conc 28.8 g/dL (31.5-36.5); Mean Corpuscular Volume 80 fL (80-100); Mean Platelet Volume 10.5 fL (9.1-12.4); NEUTROPHILS PERCENT AUTO 91 % (41-73); NRBC ABSOLUTE 0.02 K/mm3 (0.00-0.02); NRBC Auto 0.1 /100 WBC (0.0-0.2); Platelet Count 346 K/mm3 (150-400); RDW Coefficient Variation 19.7 % (11.7-14.2); RDW Standard Deviation 56.7 fL (35.1-46.3); Red Blood Cell Count 3.97 M/mm3 (3.80-5.20); White Blood Cell Count 15.84 K/mm3 (4.00-11.30)
[2019-12-02 04:31] LABS: Anion Gap 5 mmol/L (6-16); Blood Urea Nitrogen 20 mg/dL (8-24); Bun/Creatinine Ratio 26.7 (12.0-20.0); CO2, Blood 33 mmol/L (21-32); Calcium, Blood 8.4 mg/dL (8.5-10.1); Chloride, Blood 100 mmol/L (98-108); Creatinine, Blood 0.75 mg/dL (0.40-1.00); Glomerular Filtration Rate >60 (60-); Glucose, Blood 196 mg/dL (70-99); Potassium, Blood 3.5 mmol/L (3.5-5.5); Sodium, Blood 138 mmol/L (136-145)
--- NOTE | 2019-12-02 05:58 | NUR ---
CALLED MARIA TERESA BARNARD AROUND 2224 TO REPORT PATIENT'S HR TRENDING IN THE 80'S; HOME DOSE OF PO CARDIZEM STARTED; CARDIZEM GTT TURNED OFF AN HOUR LATER; MAINTAINING IN 80'S. OXYGEN TITRATED DOWN TO 5LPM VIA OXYMIZER. VSS. PATIENT INCONTINENT OF URINE MULTIPLE TIMES. FIELD PRODUCER CALLED DR. ASH FOR TYLENOL ORDERS DUE TO PATIENT'S C/O PAIN; ORDERED BUT NO LONGER WANTED. WILL CONTINUE TO MONITOR AND ASSESS UNTIL END OF SHIFT.
--- NOTE | 2019-12-02 18:30 | NUR ---
PT SUMMARY: PT CONTINUES ON IV ABO FOR POSS PNA. AFIB CONTROLLED WITH ORAL CARDIZEM 90'S-110'S, DENIES CHEST PAIN. PT CONTINUES ON 5-8L OF 02 VIA OXYMIZER, 5L WHEN PT RESTING IN BED, 8L WHEN UP IN THE CHAIR FOR MEAL OR WHEN TRASNFERRING TO THE [facility]. PT STILL HAS DYSPNEA/SOB ON EXERTION, OCCASIONAL MOIST COUGH, LUNGS DIMINISHED. PT USES WALKER 1PA FOR TRASNFERS. NO OTHER COMPLAINS REPORTED. UP IN THE CHAIR FOR MEALS, ATTENDS IN PLACE PT CONTINENT/INCONTINENT OF BOTH BLADDER AND BOWEL. PT STILL HAS PENDING COVID19 TEST, STILL ON ISOLATION PRECAUTION. PT CURRENTLY UP IN THE CHAIR EATING HER DINNER, WILL GIVE REPORT TO ONCOMING SHIFT.
--- NOTE | 2019-12-03 06:11 | NUR ---
SHIFT SUMMARY PATIENT PLEASENT AND COOPERATIVE THROUGHOUT THE NIGHT. PATIENT APPEARED TO SLEEP WELL THROUGHOUT THE NIGHT. PATIENT MEDICATED FOR A HEADACHE PER ORDERS. PATIENT RECEIVED IV ABX PER ORDERS. VITAL SIGNS CHARTED. WILL CONTINUE TO MONITOR PATIENT AND REPORT TO ONCOMING RN.
--- NOTE | 2019-12-03 09:00 | NUR ---
AM NOTE... ASSUMED CARE OF PT APROX 0700, PT IS A&Ox4 AND ADMITTED FOR RESP FAILURE. PT IS CURRENTLY ON 3L OXYMIZER WHICH IS HER HOME DOSE O2 SATS >94%. PT'S VS STABLE AT THIS TIME. L/S COARSE W/RALES NOTED IN THE BASES, RR 22-32 EVEN BUT LABORED AT TIMES. BT PRESENT AND NORMOACTIVE, ABD SOFT AND NONTENDER TO PALP. PT HAS 2+ PITTING EDEMA TO HER BLE AND NONPITTING TO BUE. PT HAS TOLD THIS RN SHE FEELS LIGHTHEADED TODAY MORE SO THAN YESTERDAY AND NOT WITH ACTIVITY. PT STATES SHE DOES NOT FEEL LIKE SHE IS GOING TO "PASS OUT " WILL CONTINUE TO MONITOR.
--- NOTE | 2019-12-03 14:36 | NUR ---
Spiritual care visit conducted. Patient is lying in bed and alert. Patient immediately tells me that she is having a horrible day and that she is not up for a visit. Patient is amenable to payer. I gladly provide prayer. Patient voices appreciation. I will continue to remain available to patient and family.
[2019-12-03 16:26] LABS: Vancomycin, Trough 11.7 ug/mL (5.0-10.0)
--- NOTE | 2019-12-03 17:07 | NUR ---
SHIFT SUMMARY... NO ACUTE NEGATIVE CHANGES NOTED THIS SHIFT. PT'S VS HAVE BEEN STABLE. PT HAS BEEN TITRATED FROM 3L OXYMIZER TO 2L WITH O2 SATS >94%. PT WAS UP IN THE CHAIR FOR APROX 4 HOURS AND GOT BACK TO BED AROUND 1130. IT WAS NOTED BY THIS RN AND THE BRAIDER OPERATOR THAT PT HAD A LARGE RED RASH TO HER JAXON AREA. PROVIDER IS AWARE, NEW ORDER FOR NYSTATIN POWDER OBTAINED. CALL LIGHT IN REACH WILL CONTINUE TO MONITOR UNTIL REPORT IS GIVEN TO ONCOMING RN.
[2019-12-04 04:10] LABS: BASOPHILS ABSOLUTE AUTO 0.07 K/mm3 (0.00-0.23); BASOPHILS PERCENT AUTO 1 % (0-2); EOSINOPHILS ABSOLUTE AUTO 0.01 K/mm3 (0.00-0.68); EOSINOPHILS PERCENT AUTO 0 % (0-6); Hematocrit 32.2 % (33.0-51.0); Hemoglobin 8.8 g/dL (11.5-16.0); IMMATURE GRAN ABSOLUTE AUTO 0.61 K/mm3 (0.00-0.10); IMMATURE GRAN PERCENT AUTO 5 % (0-1); LYMPHOCYTES ABSOLUTE AUTO 1.87 K/mm3 (0.84-5.20); LYMPHOCYTES PERCENT AUTO 14 % (21-46); MONOCYTES ABSOLUTE AUTO 0.83 K/mm3 (0.16-1.47); MONOCYTES PERCENT AUTO 6 % (4-13); Mean Corpuscular HGB 22.4 pg (26.0-34.0); Mean Corpuscular HGB Conc 27.3 g/dL (31.5-36.5); Mean Corpuscular Volume 82 fL (80-100); Mean Platelet Volume 10.6 fL (9.1-12.4); NEUTROPHILS ABSOLUTE AUTO 10.28 K/mm3 (1.96-9.15); NEUTROPHILS PERCENT AUTO 75 % (41-73); NRBC ABSOLUTE 0.03 K/mm3 (0.00-0.02); NRBC Auto 0.2 /100 WBC (0.0-0.2); Platelet Count 373 K/mm3 (150-400); RDW Coefficient Variation 19.7 % (11.7-14.2); RDW Standard Deviation 58.3 fL (35.1-46.3); Red Blood Cell Count 3.93 M/mm3 (3.80-5.20); White Blood Cell Count 13.67 K/mm3 (4.00-11.30)
[2019-12-04 04:32] LABS: Anion Gap 4 mmol/L (6-16); Blood Urea Nitrogen 31 mg/dL (8-24); Bun/Creatinine Ratio 43.1 (12.0-20.0); CO2, Blood 30 mmol/L (21-32); Calcium, Blood 8.5 mg/dL (8.5-10.1); Chloride, Blood 106 mmol/L (98-108); Creatinine, Blood 0.72 mg/dL (0.40-1.00); Glomerular Filtration Rate >60 (60-); Glucose, Blood 142 mg/dL (70-99); Sodium, Blood 140 mmol/L (136-145)
--- NOTE | 2019-12-04 06:30 | NUR ---
SHIFT SUMMARY NO ACUTE CHANGES NOTED THROUGH THE NIGHT. PT REMAINS ON 2 L O2 VIA NC. COVID 19 TEST RESULTS WERE REPORTED NEGATIVE THIS AM. VSS, ABX INFUSED PER EMAR. CALL LIGHT IN REACH, [facility]
--- NOTE | 2019-12-04 08:24 | NUR ---
AM NOTE... ASSUMED CARE OF PT APROX 0700. PT IS A&Ox4 AND WAS ADMITTED FOR RESP FAILURE. PT IS CURRENTLY ON 2L NC WITH O2 SATS >92%. L/S COARSE AND DIM T/O WITH RALES IN THE BASES. PT HAS 1+ PITTING EDEMA TO HER BLE AND NONPITTING TO HER BUE. PT BECOMES SOB W/ACTIVITY RR 24-36 EVEN BUT LABORED AT TIMES. BT PRESENT AND HYPOACTIVE ABD SOFT AND NONTENDER TO PALP. PT HAS RASH/EXCORIATIONS TO HER GROIN/JAXON AREA, THIS AREA IS BEING TREATED WITH NYSTATIN POWDER AND FREQUENT JAXON CARE. CALL LIGHT IN REACH WILL CONTINUE TO MONITOR.
--- NOTE | 2019-12-04 17:17 | NUR ---
SHIFT SUMMARY... PT HAS BEEN MORE ANXIOUS THIS SHIFT THAN LAST SHIFT. PROVIDER AWARE AND NEW ORDERS OBTAINED FOR XANAX. THIS HAS SEEMED TO HELP THE PT A LOT THIS SHIFT. PT'S VS STABLE T/O SHIFT. PT WORKED WITH PT/OT THIS SHFIT AND WAS UP IN THE CHAIR FOR APROX 3HOURS TODAY. PT HAS HAD STRESS INCONT OF URINE ALL SHIFT, PT'S GROIN/JXAON AREA IS VERY EXCORIATED, JAXON CARE/SKIN CARE HAS BEEN DONE EXTENSIVELY T/O THIS SHIFT. CALL LIGHT IN REACH WILL CONTINUE TO MONITOR UNTIL REPORT IS GIVEN TO ONCOMING RN.
--- NOTE | 2019-12-05 05:06 | NUR ---
SHIFT SUMMARY NO ACUTE CHANGES NOTED THROUGH THE NIGHT. ABX INFUSED PER EMAR, PT REMAINS ON 3 L O2 VIA NC. PT DENIES PAIN/SOB. TOLERATING PO INTAKE. ATTENDS CHANGED PRN, NYSTATIN POWDER TO GROIN. CALL LIGHT IN REACH, [facility].
--- NOTE | 2019-12-05 08:41 | NUR ---
AM NOTE... ASSUMED CARE OF PT APROX 0700. PT IS A&Ox4 AND ADMITTED FOR RESP FAILURE. PT IS CURRENTLY ON 2L NC WITH O2 SATS >93%. PT'S VS STABLE AT THIS TIME. L/S DIM AND COARSE T/O W/CRACKLES NOTED IN THE BASES. BT PRESENT AND HYPOACTIVE ABD SOFT AND NONTENDER TO PALP. PT IS CONCERNED WITH NOT HAVING A BM SINCE THE , PT IS GETTING BOWEL CARE. PT IS ANXIOUS THIS AM ABOUT BED POSITION, THE POSITION OF THINGS ON HER TABLE ETC. WELL HAVING THE ANTIBIOTICS/IV FLUIDS RUNNING AND NOT BEING ABLE TO MOVE HER ARM D/T FEAR OF "BREAKING THE IV." PT WAS GIVEN PRN XANAX. CALL LIGHT IN REACH WILL CONTINUE TO MONITOR.
--- NOTE | 2019-12-05 17:12 | NUR ---
SHIFT SUMMARY... NO ACUTE NEGATIVE CHANGES NOTED THIS SHIFT. PT'S VS HAVE BEEN STABLE. PT HAS BEEN ON 2L NC WITH O2 SATS >94%. PT WORKED WITH PT/OT AND WAS UP IN THE CHAIR 2 TIMES TODAY. THE SKIN IN THE PT'S GROIN/JAXON AREA IS VERY RED AND EXCORIATED, PT WAS EXTENSIVELY EDUCATED ON THE IMPORTANCE OF SKIN CARE AND WHAT CAUSES SKIN BREAK DOWN. PT VERBALIZED HER UNDERSTANDING. CALL LIGHT IN REACH WILL CONTINUE TO MONITOR UNTIL REPORT IS GIVEN TO ONCOMING RN
--- NOTE | 2019-12-05 18:02 | NUR ---
SUMMARY PT TRANSFERRED UP FROM PCU, PT ALERT AND ORIENTED, ORIENTED PT TO THE ROOM AND CALL SYSTEM, ARRANGED HER BELONGINGS AROUND HER SHE REQUESTED, WILL CONTINUE TO MONITOR
--- NOTE | 2019-12-06 05:21 | NUR ---
SUMMARY PT RESTING QUIETLY WITH FEW INTERRUPTIONS THIS SHIFT. LAYING ON LEFT SIDE SHE STATED SHE CANT BREATHE WELL LAYING ON HER RIGHT SIDE. IV ANTIBIOTICS ADMINISTERED PER OCT. NO COMPLAINTS OF PAIN. INCONT OF URINE X 1. LINEN CHANGED AT THAT TIME. CALL LIGHT IN REACH.
[2019-12-06 08:23] LABS: Hematocrit 35.1 % (33.0-51.0); Hemoglobin 9.9 g/dL (11.5-16.0); Mean Corpuscular HGB 22.8 pg (26.0-34.0); Mean Corpuscular HGB Conc 28.2 g/dL (31.5-36.5); Mean Corpuscular Volume 81 fL (80-100); Mean Platelet Volume 10.1 fL (9.1-12.4); NRBC ABSOLUTE 0.07 K/mm3 (0.00-0.02); NRBC Auto 0.5 /100 WBC (0.0-0.2); Platelet Count 418 K/mm3 (150-400); RDW Coefficient Variation 19.6 % (11.7-14.2); Red Blood Cell Count 4.34 M/mm3 (3.80-5.20); White Blood Cell Count 13.46 K/mm3 (4.00-11.30)
[2019-12-06 08:24] LABS: Anion Gap 4 mmol/L (6-16); Blood Urea Nitrogen 15 mg/dL (8-24); Bun/Creatinine Ratio 19.3 (12.0-20.0); CO2, Blood 33 mmol/L (21-32); Calcium, Blood 8.8 mg/dL (8.5-10.1); Chloride, Blood 102 mmol/L (98-108); Creatinine, Blood 0.78 mg/dL (0.40-1.00); Glomerular Filtration Rate >60 (60-); Glucose, Blood 101 mg/dL (70-99); Potassium, Blood 4.1 mmol/L (3.5-5.5); Sodium, Blood 139 mmol/L (136-145)
--- NOTE | 2019-12-06 18:08 | NUR ---
SUMMARY PT SITTING UP IN THE CHAIR AT THE BEDSIDE EATING DINNER, PT HAS BEEN UP FOR ALL MEALS, PT IS ALERT AND ORIENTED, PLEASANT AND COOPERATIVE, HAS WORKED WITH PT/OT TODAY, VSS, NO ACUTE CHANGES, WILL CONT TO MONITOR
--- NOTE | 2019-12-07 07:26 | NUR ---
SHIFT SUMMARY: PATIENT IS ALERT AND ORIENTED X3, NO REPORTS OF PAIN OR DISCOMFORT. VS ARE STABLE, SAT DIPS TO 92% DURING SLEEP ON 2L, 02 IS INCREASED TO 3L WHICH IS HER BASELINE AT HOME. PATIENT IS NOT MOVING AROUND MUCH DUE TO SOB WITH ACTIVITY. PRODUCTIVE COUGH OF A THICH YELLOW SPUTUM.
--- NOTE | 2019-12-07 19:17 | NUR ---
SHIFT SUMMARY. A&OX4, 1 ASSIST TO CHAIR AND BSC. PT AT BASELINE O2 USAGE. SOB WITH EXERTION. PT DENIES PAIN AND N/V. NO NEW CHANGES OR CONCERNS.
--- NOTE | 2019-12-08 04:24 | NUR ---
SHIFT SUMMARY: PATIENT IS A&OX3, NO COMPLIANTS OF PAIN. MAINTAING LOAN ON 3L NC IN THE MID 90'S. SOB WITH ACTIVITY, PATIENT RECOVERS QUICKLY AT REST. VS ARE STABLE, PATIENT IS INC. OF URINE AND CHANGES HER PAD INDEPENDANTLY.
--- NOTE | 2019-12-08 18:24 | NUR ---
SHIFT SUMMARY. PT REPORTS BREATHING IS AT BASELINE, LUNGS COARSE IN THE BASES, LESS TIGHT TODAY THAN COMPARED TO YESTERDAY. O2 REQUIREMENTS AT BASELINE. PT DENIES PAIN, SOB, N/V. NO NEW CHANGES OR CONCERNS.
--- NOTE | 2019-12-09 05:05 | NUR ---
SHIFT SUMMARY A/O, ABLE TO MAKE NEEDS KNOWN. COOPERATIVED WITH CARE. CALLS AND ANSWERS QUESTIONS APPROPRIATELY. C/O HEADACHE THIS AM; WILL MEDICATE PER EMAR. APPEARED TO REST SOME OVERNIGHT. SPO2 REMAINS >95% ON 3L WHICH IS BASELINE. HAS AN OCCASIONAL PRODUCTIVE COUGH. NO ACUTE CHANGES NOTED OVERNIGHT. WCTM. BED IN LOWEST POSITION. CALL LIGHT AND BELONGINGS WITHIN REACH. REPORT TO ONCOMING RN.
--- NOTE | 2019-12-09 17:22 | NUR ---
PT AOX4 AND COOPERATIVE OF CARE. PT NEEDS WALKER AND ASSISTANCE TO GET TO COMODE OR CHAIR. PT HAS BEEN DOING WELL GETTING UP FOR MEALS. PT IS ALSO USING FLUTTER VALVE INSTRUCTED. PT IS SITTING UP AT THIS TIME WILL CONTINUE TO MONITOR.
--- NOTE | 2019-12-10 05:26 | NUR ---
SHIFT SUMMARY: VSS. AFEB. A/OX3. COMMUNICATES NEEDS. 02 96-97% ON 3L VIA NC. INSPIRATORY AND EXPIRATORY COARSE LS AND WHEEZING AUSCULATED THROUGHOUT LOBES. OCCASIONAL PRODUCTIVE COUGH W/MOD AMTS OF CLEAR SPUTUM PRODUCED. CONT W/EXERTIONAL SOB. NO ACUTE CHANGES OVERNIGHT. WILL CONT TO MONITOR.
[2019-12-10] MEDS ORDERED: GABA300 PO (13:13)
[2019-12-10] MEDS ORDERED: ALPR.25 PO (13:14)
--- NOTE | 2019-12-10 13:54 | NUR ---
PT DISCHARGED FROM THE UNIT. DISCHARGE INSTRUCTIONS REVIEWED. MEDICATIONS FAXED. IV REMOVED. NO QUESTIONS AT THIS TIME. PT HAS AN APT IN PLACE WITH PRIMARY CARE FOR MONDAY.
== END 2019-12-10 14:35 | disposition home health service (06) | DRG 871 ==
LOC: ER 13:44 → PCU 15:57 → MEDS 12-05 17:45
PROVIDERS: Emergency Medicine; Pharmacist; ADMIT Internal Medicine
DX: A41.9 Sepsis, unspecified organism (principal); I50.33 Acute on chronic diastolic (congestive) heart failure; J96.21 Acute and chronic respiratory failure with hypoxia; J15.0 Pneumonia due to Klebsiella pneumoniae; J44.0 Chronic obstructive pulmonary disease with (acute) lower respiratory infection; Z68.41 Body mass index [BMI] 40.0-44.9, adult; E11.42 Type 2 diabetes mellitus with diabetic polyneuropathy; R65.20 Severe sepsis without septic shock; I48.0 Paroxysmal atrial fibrillation; E66.01 Morbid (severe) obesity due to excess calories; E03.9 Hypothyroidism, unspecified; M19.90 Unspecified osteoarthritis, unspecified site; K21.9 Gastro-esophageal reflux disease without esophagitis; R54 Age-related physical debility; Z74.09 Other reduced mobility; Z99.81 Dependence on supplemental oxygen; Z87.891 Personal history of nicotine dependence; Z79.4 Long term (current) use of insulin; Z79.52 Long term (current) use of systemic steroids
CPT/HCPCS: 0099U; 36415; 36600; 71045; 80048; 80053; 80202; 82803; 82947; 83605; 83880; 84145; 84484; 85025; 85027; 85379; 87040; 87070; 87077; 87186; 87205; 93005; 93010; 94640; 94667; 94760; 94762; 96365; 96367; 96375; 97110; 97162; 97166; 97530; 97535; 99285-25; A9270; A9270-GY; C1751; J0692; J1940; J2543; J2930; J3370; J7030; J7050; J7512; U0002

== ENCOUNTER 2019-12-12 14:05 | Inpatient (IN) | payer OTHER ==
[~2019-12-12] VITALS: Ht 152.4 cm; Wt 116.1 kg
[~2019-12-12 14:05] MED LIST changes: +Duoneb 2.5-0.5 M3 ML INH; +GABA300 PO
[2019-12-12] MEDS ORDERED: SYNTHROID50 MC1 PO (14:15)
[2019-12-12 14:27] LABS: Base Excess Venous 5.6 mmol/L; Bicarbonate Venous 27.6 mmol/L (24.0-30.0); PCO2 Venous 60.4 mmHg (38-42); PO2 Venous 38.4 mmHg (38-42); pH Blood Venous 7.33 (7.34-7.37)
[2019-12-12 14:43] LABS: BASOPHILS ABSOLUTE AUTO 0.09 K/mm3 (0.00-0.23); BASOPHILS PERCENT AUTO 0 % (0-2); EOSINOPHILS ABSOLUTE AUTO 0.01 K/mm3 (0.00-0.68); EOSINOPHILS PERCENT AUTO 0 % (0-6); Hematocrit 38.4 % (33.0-51.0); Hemoglobin 10.5 g/dL (11.5-16.0); IMMATURE GRAN ABSOLUTE AUTO 0.73 K/mm3 (0.00-0.10); IMMATURE GRAN PERCENT AUTO 3 % (0-1); LYMPHOCYTES ABSOLUTE AUTO 1.25 K/mm3 (0.84-5.20); LYMPHOCYTES PERCENT AUTO 5 % (21-46); MONOCYTES ABSOLUTE AUTO 0.71 K/mm3 (0.16-1.47); MONOCYTES PERCENT AUTO 3 % (4-13); Mean Corpuscular HGB 22.4 pg (26.0-34.0); Mean Corpuscular HGB Conc 27.3 g/dL (31.5-36.5); Mean Corpuscular Volume 82 fL (80-100); Mean Platelet Volume 10.6 fL (9.1-12.4); NEUTROPHILS ABSOLUTE AUTO 24.14 K/mm3 (1.96-9.15); NEUTROPHILS PERCENT AUTO 90 % (41-73); NRBC ABSOLUTE 0.03 K/mm3 (0.00-0.02); NRBC Auto 0.1 /100 WBC (0.0-0.2); Platelet Count 455 K/mm3 (150-400); RDW Coefficient Variation 20.6 % (11.7-14.2); RDW Standard Deviation 60.1 fL (35.1-46.3); Red Blood Cell Count 4.69 M/mm3 (3.80-5.20); White Blood Cell Count 26.93 K/mm3 (4.00-11.30)
[2019-12-12 14:59] LABS: Alanine Aminotransfer (ALT/SGP 51 U/L (12-78); Albumin, Blood 3.4 g/dL (3.4-5.0); Albumin/Globulin Ratio 0.8 (0.8-1.8); Alk Phos 79 U/L (50-136); Anion Gap 6 mmol/L (6-16); Aspartate Aminotrans (AST/SGOT 18 U/L (12-37); Bilirubin, Total 0.5 mg/dL (0.1-1.0); Blood Urea Nitrogen 19 mg/dL (8-24); Bun/Creatinine Ratio 23.5 (12.0-20.0); CO2, Blood 31 mmol/L (21-32); Calcium, Blood 9.7 mg/dL (8.5-10.1); Chloride, Blood 98 mmol/L (98-108); Creatinine, Blood 0.81 mg/dL (0.40-1.00); Globulin, Blood 4.3 g/dL (2.2-4.0); Glomerular Filtration Rate >60 (60-); Glucose, Blood 370 mg/dL (70-99); Potassium, Blood 4.5 mmol/L (3.5-5.5); Sodium, Blood 135 mmol/L (136-145); Total Protein, Blood 7.7 g/dL (6.4-8.2); Troponin I <0.015 ng/mL (0.000-0.040)
[2019-12-12 15:40] LABS: Source, Urine Catheter
[2019-12-12 15:49] LABS: Bilirubin, Urine Neg (Neg); Blood, Urine Neg (Neg); Glucose Qualitative, Urine 4+ (Neg); Ketones, Urine Neg (Neg); Leukocyte Esterase, Urine Neg (Neg); Nitrite, Urine Neg (Neg); Protein, Urine Neg (Neg); Urobilinogen, Urine NORM (Normal)
[2019-12-12 16:00] LABS: Appearance, Urine Clear (Clear); Color, Urine Pale Yellow (P-Yellow)
[2019-12-12 18:11] LABS: PCO2 Arterial 51.9 mmHg (35-45); pH Blood Arterial 7.41 (7.35-7.45)
[2019-12-12 18:12] LABS: PO2 Arterial 42.7 mmHg (80-100)
--- NOTE | 2019-12-12 19:16 | NUR ---
ADMISSION PT CAME TO ICU VIA STRETCHER AT APPROX. ~1830 ON BIPAP 16/8, 100% FIO2. SAT'S SHOWING A SOMEWHAT CONSISTENT LOW PLETH IN THE 90'S. SHE HAS HIGH ANXIETY, REFUSING TO BE ON ANY OTHER SIDE THAN HER LEFT, INCLUDING HER BACK. SHE REPORTS BACK PAIN, AND HAS EXTREEME DYSPNEA WHEN SHE BECOMES ANXIOUS. SHE IS CURRENTLY PROPPED ON HER LEFT SIDE. SHE IS QUITE LARGE, AND DIFFICULT TO MOVE. SHE STATES HER SWELLING IS THE WORSE IT HAS BEEN, AND THE RIGHT LEG APPEARS TO BE MORE SWOLLEN THAN THE LEFT. HER FINGERS APPEAR MOTTLED, EXTREMETIES A LITTLE PALE, BUT SHE HAS CAP REFILL AROUND ~3s, AND +2 PULSES BOTH PEDAL AND RADIAL. SHE IS IN AFIB, RATE 115-140's. CARDIZEM WAS INFUSING AT 5MG/HR UPON ARRIVAL (ER NURSE STATES SHE JUST STARTED IT BEFORE LEAVING). I TITRATED UP TO 10MG/HR AT 1900, BECAUSE HER RATE WAS GREATER THAN 110 bpm. SHE HAS A PATENT LANGLEY DRAINING YELLOW/CLOUDY URINE. SHE IS ALERT AND ORIENTED TO SELF, SITUATION, SURROUNDINGS, AND TIME. SHE IS AFEBRILE. SHE TOLD ME SHE WANTS TO BE A FULL CODE. AND THAT IF SHE WERE TO BE INTUBATED, IT WOULD ONLY BE FOR 2 WEEKS. I WASN'T ABLE TO ASK IF SHE HAD A POLST FORM, OR ADVANCED DIRECTIVE. AFTER HER ANXIOUS ENTRENCE, SHE IS LETHARGIC ON BIPAP. SHE NEEDED TO FOCUS ON BREATHING. UNABLE TO GIVE FAMILY REPORT, GAVE REPORT TO YULIANA. SHE WILL FINISH ADMIT AND UPDATE FAMILY.
--- NOTE | 2019-12-12 19:30 | NUR ---
ASSUMED CARE NOTE: ASSUMED CARE OF PT @ 1900, RECEVIED REPORT FROM LIZZ ROSARIO. PT IS ALERT AND ORIENTEDX3. PT IS ON BIPAP WITH SETTINGS @ 16/8, FiO2 @ 100%, SPO2 ABOVE 90% PT IN AFIB WITH RVR, HR IN THE 120'S-130'S, CARDIZEM @ 10MG/HR. PT IS HAVING LABORED BREATHING, WITH RR IN THE 30'S. PT IS AFEBRILE. BOWEL TONES HEARD IN ALL FOUR QUADRANTS. BLE EDEMA +3. ALL EXTREMITIES COOL TO THE TOUCH. LANGLEY PATNET AND DRAINING CLEAR, YELLOW URINE. WILL REVIEW ORDERS. BED AT LOWEST LEVEL, CALL LIGHT WITHIN REACH.
--- NOTE | 2019-12-12 20:31 | NUR ---
CALLED GRANDDAUGHTER CJ (CAREGIVER). CJ REPORTS THAT PATIENT WAS VERY ANXIOUS THIS MORNING BEFORE COMING INTO THE HOSPITAL. SHE ALSO REPORTS THAT PATINET HAS SEVERE ANXIETY AT HOME, THAT PT WILL CONSTANTLY CHECK O2 LEVELS AND HYPERVENTILATE IN ATTEMPT TO RAISE HER SPO2 STATUS. PT TAKES XANAX AT HOME FOR ANXIETY. SPOKE TO HOSPITALIST SILAS REGARDING THE MATTER AND REPORTED THAT PATIENT IS EXPERIENCING ANXIETY, WITH RR IN THE 40-50. THE PT IS ALSO UNABLE TO BE COACHED TO BREATH AT A SLOWER PACE. NO NEW ORDERS GIVEN.
--- NOTE | 2019-12-12 20:55 | NUR ---
AT BEDSIDE, ATTEMPTED TO TITRATE BIPAP FiO2 TO 80%, PT THEN BECAME SOB. RR BETWEEN 40-50'S, SPO2 DROPPED INTO THE 80'S. PT WAS THEN PLACED BACK ON 100% FIO2, SPO2 CLIMBING BACK UP INTO THE 90'S. PT IS EXPERIENCING LABORED BREATHING, PT REPOSITIONED TO HIGH MCKENNA'S POSITION TO ASSIST WITH BREATHING
--- NOTE | 2019-12-12 23:37 | NUR ---
CALLED REGARDING LOW OXYGENATION. RECOMMENDED TO INTUBATE PT, DUE TO INCREASED O2 NEED.
--- NOTE | 2019-12-13 00:30 | NUR ---
UPDATE AT BEDSIDE. PT BEING INTUBATED. 2359: 20MG OF ETOMIDATE , AND 100MG OF ROCURONIUM GIVEN 0002: ETT INSERTED, 24 @ TEETH. CHEST X-RAY ORDERED, OG TUBE INSERTED
[2019-12-13 00:54] LABS: PCO2 Arterial 69 mmHg (35-45); PO2 Arterial 60 mmHg (80-100); pH Blood Arterial 7.26 (7.35-7.45)
--- NOTE | 2019-12-13 00:54 | NUR ---
UPDATE: VERIFICATION OF ETT PLACEMENT AND OG TUBE GIVEN BY ER PHYSICAN. VENT SETTINGS AC14/450/10/100%, SPO2 OF 87% RT AWARE, ABG OBTAINED.
[2019-12-13 03:30] LABS: BASOPHILS ABSOLUTE AUTO 0.15 K/mm3 (0.00-0.23); BASOPHILS PERCENT AUTO 0 % (0-2); EOSINOPHILS PERCENT AUTO 0 % (0-6); Hematocrit 34.9 % (33.0-51.0); Hemoglobin 9.6 g/dL (11.5-16.0); IMMATURE GRAN ABSOLUTE AUTO 1.34 K/mm3 (0.00-0.10); IMMATURE GRAN PERCENT AUTO 3 % (0-1); LYMPHOCYTES ABSOLUTE AUTO 0.64 K/mm3 (0.84-5.20); LYMPHOCYTES PERCENT AUTO 1 % (21-46); MONOCYTES ABSOLUTE AUTO 1.61 K/mm3 (0.16-1.47); MONOCYTES PERCENT AUTO 3 % (4-13); Mean Corpuscular HGB Conc 27.5 g/dL (31.5-36.5); Mean Corpuscular Volume 84 fL (80-100); Mean Platelet Volume 10.9 fL (9.1-12.4); NEUTROPHILS ABSOLUTE AUTO 44.91 K/mm3 (1.96-9.15); NEUTROPHILS PERCENT AUTO 92 % (41-73); NRBC Auto 0.2 /100 WBC (0.0-0.2); Platelet Count 424 K/mm3 (150-400); RDW Coefficient Variation 20.4 % (11.7-14.2); RDW Standard Deviation 61.8 fL (35.1-46.3); Red Blood Cell Count 4.17 M/mm3 (3.80-5.20); White Blood Cell Count 48.65 K/mm3 (4.00-11.30)
--- NOTE | 2019-12-13 03:37 | NUR ---
ATTEMPTED TO UPDATE GRAND-DAUGHTER CJ, LEFT VOICEMAIL STATING TO CALL THE UNIT FOR UPDATE.
[2019-12-13 03:51] LABS: BAND PERCENT MAN 16 % (0-8); BASOPHILS PERCENT MAN 0 % (0-2); EOSINOPHILS PERCENT MAN 0 % (0-6); LYMPHOCYTES ABSOLUTE MAN 0.48 K/mm3 (0.84-5.20); LYMPHOCYTES PERCENT MAN 1 % (21-46); METAMYELOCYTE ABSOLUTE MAN 0.97 K/mm3 (0.00-0.00); METAMYELOCYTE PERCENT MAN 2 % (0-0); MONOCYTES ABSOLUTE MAN 0.48 K/mm3 (0.16-1.47); MONOCYTES PERCENT MAN 1 % (4-13); SEG NEUTROPHILS PERCENT MAN 80 % (41-73); TOTAL CELLS COUNTED 100
[2019-12-13 03:52] LABS: Albumin, Blood 2.5 g/dL (3.4-5.0); Albumin/Globulin Ratio 0.7 (0.8-1.8); Bilirubin, Total 0.5 mg/dL (0.1-1.0); Bun/Creatinine Ratio 24.5 (12.0-20.0); Calcium, Blood 8.8 mg/dL (8.5-10.1); Creatinine, Blood 1.1 mg/dL (0.40-1.00); Globulin, Blood 3.6 g/dL (2.2-4.0); Magnesium, Blood 2.3 mg/dL (1.6-2.4); Phosphorus, Blood 5.6 mg/dL (2.5-4.9); Potassium, Blood 4.8 mmol/L (3.5-5.5); Total Protein, Blood 6.1 g/dL (6.4-8.2)
--- NOTE | 2019-12-13 03:59 | NUR ---
UPDATE: CARDIZEM ON STANDBY DUE TO LOW BP. PT IN AFIB WITH HR IN THE 90'S
[2019-12-13 05:04] LABS: PCO2 Arterial 47.1 mmHg (35-45); pH Blood Arterial 7.33 (7.35-7.45)
--- NOTE | 2019-12-13 05:25 | NUR ---
UPDATE/SHIFT SUMMARY: CALLED REGARDING LOW SATURATIONS OF 79-80%. ORDERS GIVEN TO POSITION PT IN PRONE POSITION. PT'S B/P CONTINUES TO DECLINE, ORDERS TO DELIVER A 500ML OF NS WERE GIVEN. CARDIZEM REMAINS ON SB. PROPOFOL @ 20MCG/MIN, AND PRECEDEX @ 0.4MCG/HR. PT IS NOT VERY WELL SEDATED, HOWEVER IS ABLE TO TOLERATE VENT. AC14/450/10/100%, SPO2 99%, RR 26. NEW IV ACCESS ARE ATTEMPTING TO BE FOUND AT THIS TIME. PT CONTINUES TO BE IN AFIB WITH HR BETWEEN 80-[address], CONNECTED TO INTERMIT SUCTION, SMALL AMOUNTS OF GREEN BILE NOTED. LANGLEY PATNET AND DRAINING CLEAR YELLOW URINE. WILL CONTINUE TO MONITOR PT UNTIL REPORT IS GIVEN TO ONCOMING SHIFT.
--- NOTE | 2019-12-13 06:15 | NUR ---
CALLED REGARDING LOW BLOOD PRESSURE, PHYSICAN IS COMING IN TO ASSESS PT. PRECEDEX ON SB.
--- NOTE | 2019-12-13 07:38 | NUR ---
ASSUMED CARE BEDSIDE REPORT RECIEVED. PT IS PRONED AND ON VENTILATOR. VENT SETTINGS AC 14, TV 450, PEEP 12, FIO2 100%. PT SPO2 82%. PT REPOSITIONED SUPINE FOR LINE PLACEMENT AT 0715. PT HYPOTENSIVE, SBP 60'S. DR ZHONG AT BEDSIDE TO PLACE CENTRAL LINE AND ART LINE AT THIS TIME. PT WITH OGT IN PLACE TO LIS, BILE OUTPUT NOTED. LANGLEY IN PLACE DRAINING DARK YELLOW URINE. PT SEDATED WITH PROPOFOL AT 20 MCG/KG/MIN. PT MOVES EXTREMITIES AT TIMES. SBW RESTRAINTS IN PLACE. WILL CONTINUE TO MONITOR.
--- NOTE | 2019-12-13 08:30 | NUR ---
PRONED AFTER ART LINE AND CENTRAL LINE PLACEMENT, PT AND ALL BELONGINGS MOVED TO ICU 11. PT REPOSITIONED PRONE AGAIN AFTER MOVE INTO ROOM 11. VENT SETTINGS REMAIN UNCHANGED. PT WITH LARGE AMOUNT OF ETT SECRETIONS WITH SUCTION. PT GRANDAUGHTER UPDATED BY DR ZHONG AND ALLY WITH PALLIATIVE CARE. WILL CONTINUE TO MONITOR.
[2019-12-13 13:34] LABS: Vancomycin, Random 12.8 ug/mL
--- NOTE | 2019-12-13 17:41 | NUR ---
SHIFT SUMMARY NO ACUTE CHANGES THIS SHIFT. PT HAS REMAINED PRONED SINCE 0830 THIS AM. PT SHIFTED FROM LEFT TO RIGHT SIDES WHILE PRONED Q2. PT REMAINS WITH VENT SETTINGS AT AC 14, TV 450, PEEP 12, AND FIO2 TITRATED DOWN TO 80%. LEVOPHED TITRATED OFF THIS SHIFT. VITAL SIGNS HAVE REMAINED STABLE. PT REMAINS IN AFIB HR 100-120'S. OGT IN PLACE, VITAL HIGH PROTEIN STARTED AT 10 ML/HR, NO RESIDUALS OR ASPIRATION NOTED. RIGHT FEMORAL ART LINE AND CENTRAL LINE REMAIN C/D/I. NS INFUSING AT 100 ML/HR, AND PROPOFOL AT 35 MCG/KG/MIN. SBW RESTRAINTS REMAIN IN PLACE. LANGLEY REMAINS IN PLACE WITH YELLOW URINE OUTPUT NOTED. SKIN REMAINS COOL AND PALE. PT ISAK UPDATED THIS AFTERNOON. WILL CONTINUE TO MONITOR AND REPORT OFF TO ONCOMING RN.
--- NOTE | 2019-12-13 19:00 | NUR ---
ASSUMED CARE ASSUMED CARE OF PATIENT. PT REMAINS INTUBATED- AC 14, TV 450, PEEP 12, FIO2 80%. RR 20s. SEDATED WITH PROPOFOL AT 35MCG/KG/MIN. BILATERAL SOFT WRIST RESTRAINTS IN PLACE TO PREVENT SELF-EXTUBATION. MONITOR SHOWS AFIB, RATE 90-110s. BP STABLE- LEVOPHED REMAINS OFF. OG WITH VITAL HIGH PROTEIN @ 10CC/HR (GOAL RATE IS 40CC/HR)AND WITH 30CC H20 Q4H. LANGLEY PATENT AND DRAINING YELLOW URINE. RIGHT FEMORAL CENTRAL LINE AND ARTERIAL LINE PATENT. SEE SHIFT ASSESSMENT FOR FULL ASSESSMENT.
--- NOTE | 2019-12-13 21:43 | NUR ---
HR/CARDIZEM MONITOR SHOWS AFIB 110-120s. CARDIZEM STARTED AT THIS TIME AT 5MG/HR.
[2019-12-14 04:36] LABS: BASOPHILS ABSOLUTE AUTO 0.05 K/mm3 (0.00-0.23); BASOPHILS PERCENT AUTO 0 % (0-2); EOSINOPHILS PERCENT AUTO 0 % (0-6); Hematocrit 26.4 % (33.0-51.0); Hemoglobin 7.6 g/dL (11.5-16.0); IMMATURE GRAN ABSOLUTE AUTO 0.43 K/mm3 (0.00-0.10); IMMATURE GRAN PERCENT AUTO 2 % (0-1); LYMPHOCYTES ABSOLUTE AUTO 0.71 K/mm3 (0.84-5.20); LYMPHOCYTES PERCENT AUTO 3 % (21-46); MONOCYTES ABSOLUTE AUTO 0.59 K/mm3 (0.16-1.47); MONOCYTES PERCENT AUTO 2 % (4-13); Mean Corpuscular HGB 23.5 pg (26.0-34.0); Mean Corpuscular HGB Conc 28.8 g/dL (31.5-36.5); Mean Corpuscular Volume 82 fL (80-100); Mean Platelet Volume 10.4 fL (9.1-12.4); NEUTROPHILS ABSOLUTE AUTO 24.59 K/mm3 (1.96-9.15); NEUTROPHILS PERCENT AUTO 93 % (41-73); NRBC ABSOLUTE 0.04 K/mm3 (0.00-0.02); NRBC Auto 0.2 /100 WBC (0.0-0.2); Platelet Count 278 K/mm3 (150-400); RDW Coefficient Variation 20.2 % (11.7-14.2); RDW Standard Deviation 60.3 fL (35.1-46.3); Red Blood Cell Count 3.23 M/mm3 (3.80-5.20); White Blood Cell Count 26.37 K/mm3 (4.00-11.30)
[2019-12-14 04:55] LABS: Albumin, Blood 1.9 g/dL (3.4-5.0); Albumin/Globulin Ratio 0.5 (0.8-1.8); Bilirubin, Total 0.4 mg/dL (0.1-1.0); Bun/Creatinine Ratio 34.9 (12.0-20.0); Creatinine, Blood 1.26 mg/dL (0.40-1.00); Globulin, Blood 3.6 g/dL (2.2-4.0); Magnesium, Blood 2.5 mg/dL (1.6-2.4); Phosphorus, Blood 4.2 mg/dL (2.5-4.9); Total Protein, Blood 5.5 g/dL (6.4-8.2)
[2019-12-14 05:09] LABS: PCO2 Arterial 48.2 mmHg (35-45); PO2 Arterial 81.8 mmHg (80-100); pH Blood Arterial 7.33 (7.35-7.45)
--- NOTE | 2019-12-14 06:00 | NUR ---
CALL TO MD DR. ZHONG NOTIFIED OF DROP IN HgB TO 7.6- NEW LABS ORDERED FOR 1200 TODAY TO RECHECK. ALSO PROVIDED UPDATE TO MD AND DECISION WAS MADE TO HOLD OFF ON PRONING PATIENT AT THIS TIME.
--- NOTE | 2019-12-14 06:30 | NUR ---
SHIFT SUMMARY PT REMAINS INTUBATED- AC 14, TV 450, PEEP 12, FIO2 NOW AT 90%. SEDATED WITH PROPOFOL @ 35MCG/KG/MIN. BILATERAL SOFT WRIST RESTRAINTS IN PLACE TO PREVENT SELF-EXTUBATION. SEDATION VACATION DONE AT APPROXIMATELY 0500- PT AWAKE AND NODS HEAD YES/NO SEEMINGLY APPROPRIATELY. NOT FOLLOWING COMMANDS, BUT DOES MOVE ALL EXTREMITIES AND ATTEMPTS TO SIT UP IN BED. RR 25-30s WITH SEDATION OFF. MONITOR SHOWED AFIB T/O SHIFT, RATE 90-130. HR NOW 90-100s WITH CARDIZEM AT 10MG/HR. BP STABLE. A-LINE AND CENTRAL LINE TO RIGHT FEMORAL- PATENT. OG WITH VITAL HIGH PROTIEN AT 30CC/HR (GOAL IS 40CC/HR). OG RESIDUAL <10CC. LANGLEY PATENT AND DRAINING YELLOW URINE. NS INFUSING @ 100CC/HR PER ORDER. REMAINS IN [place]/CONTACT ISOLATION FOR R/O COVID. WILL REPORT TO DAY SHIFT RN WHEN AVAILABLE.
--- NOTE | 2019-12-14 08:02 | NUR ---
ASSUMED CARE BEDSIDE REPORT RECIEVED. PT IS INTUBATED AND SEDATED. VENT SETTINGS AC 14, TV 450, PEEP 12, FIO2 80%. PT WITH MINIMAL ETT SECRETIONS THIS AM. PT SEDATED WITH PROPOFOL AT 35 MCG/KG/MIN. PT GRIMMACES WITH ORAL CARE AND WITHDRAWS FROM NOXIOUS STIMULI. OGT IN PLACE WITH TF AT 30 ML/HR, NO RESIDUALS NOTED. ARTERIAL LINE TO RIGHT GROIN IS C/D/I. CENTRAL LINE TO RIGHT GROIN IS C/D/I. NS INFUSING AT 100 ML/HR, NS TKO, AND CARDIZEM GTT AT 10 MG/HR. VITAL SIGNS STABLE, PT IN AFIB RATE 80-110'S. LANGLEY IN PLACE WITH YELLOW URINE OUTPUT NOTED. SBW RESTRAINTS IN PLACE. [facility] AM. WILL CONTINUE TO MONITOR.
[2019-12-14 12:50] LABS: Hematocrit 26.7 % (33.0-51.0); Hemoglobin 7.6 g/dL (11.5-16.0)
[2019-12-14 13:28] LABS: Vancomycin, Trough 21.8 ug/mL (5.0-10.0)
--- NOTE | 2019-12-14 18:09 | NUR ---
SHIFT SUMMARY PT DOING WELL THIS SHIFT. PIG TAIL CHEST TUBE PLACED TO LEFT UPPER CHEST THIS AM. PT HAS IMPROVED GREATLY THROUGHOUT THE DAY S/P CHEST TUBE PLACEMENT. PT REMAINS INTUBATED AND SEDATED. VENT SETTINGS CHANGED TO AC 14, TV 350, PEEP DOWN TO 10, AND FIO2 DOWN TO 65%. PT MAINTAINING SPO2 >92%. CHEST TUBE TO 20 CM WATER SUCTION, NO AIR LEAK NOTED. VITAL SIGNS HAVE REMAINED STABLE. OGT REMAINS IN PLACE WITH TF AT 40 ML/HR GOAL RATE. MINIMAL RESIDUALS NOTED. CENTRAL LINE AND ARTERIAL LINE TO RIGHT FEMORAL REMAIN C/D/I. NS INFUSING AT 100 ML/HR, PROPOFOL AT 35 MCG/KG/MIN, CARDIZEM AT 10 MG/HR, AND NS TKO. LANGLEY REMAINS IN PLACE. SBW RESTRAINTS REMAIN IN PLACE. WILL CONTINUE TO MONITOR AND REPORT OFF TO ONCOMING RN.
--- NOTE | 2019-12-14 22:00 | NUR ---
ASSUMPTION OF CARE ASSUMED CARE OF PT @ 1900, PT INTUBATED AND SEDATED, VENT SET TO AC 14/350/10/65%, O2 SATURATIONS>90%. CHEST TUBE TO L ANTERIOR CHEST, NO CREPITOUS NOTED AROUND INSERTION SITE, DRESSING C/D/I. CL AND ART LINE TO R GROIN, ART LINE SHOWING BP MAPS>65, HR 80'S-120 PROPOFOL INF @ 35, CARDIZEM INF @ 10 (SEE FLOWSHEET). PT RESPONDS TO PAINFUL STIMULI. TF INFUSING @ 40ml/hr, FOELY IN PLACE DRAINING YELLOW URINE.
[2019-12-15 03:32] LABS: BASOPHILS ABSOLUTE AUTO 0.02 K/mm3 (0.00-0.23); BASOPHILS PERCENT AUTO 0 % (0-2); EOSINOPHILS PERCENT AUTO 0 % (0-6); Hematocrit 25.8 % (33.0-51.0); Hemoglobin 7.4 g/dL (11.5-16.0); IMMATURE GRAN ABSOLUTE AUTO 0.41 K/mm3 (0.00-0.10); IMMATURE GRAN PERCENT AUTO 2 % (0-1); LYMPHOCYTES ABSOLUTE AUTO 0.37 K/mm3 (0.84-5.20); LYMPHOCYTES PERCENT AUTO 2 % (21-46); MONOCYTES ABSOLUTE AUTO 0.41 K/mm3 (0.16-1.47); MONOCYTES PERCENT AUTO 2 % (4-13); Mean Corpuscular HGB 23.6 pg (26.0-34.0); Mean Corpuscular HGB Conc 28.7 g/dL (31.5-36.5); Mean Corpuscular Volume 82 fL (80-100); Mean Platelet Volume 11.4 fL (9.1-12.4); NEUTROPHILS ABSOLUTE AUTO 19.52 K/mm3 (1.96-9.15); NEUTROPHILS PERCENT AUTO 94 % (41-73); NRBC ABSOLUTE 0.08 K/mm3 (0.00-0.02); NRBC Auto 0.4 /100 WBC (0.0-0.2); Platelet Count 279 K/mm3 (150-400); RDW Coefficient Variation 20.5 % (11.7-14.2); RDW Standard Deviation 61.2 fL (35.1-46.3); Red Blood Cell Count 3.14 M/mm3 (3.80-5.20); White Blood Cell Count 20.73 K/mm3 (4.00-11.30)
[2019-12-15 03:56] LABS: Alanine Aminotransfer (ALT/SGP 354 U/L (12-78); Albumin, Blood 1.9 g/dL (3.4-5.0); Albumin/Globulin Ratio 0.5 (0.8-1.8); Alk Phos 72 U/L (50-136); Anion Gap 6 mmol/L (6-16); Aspartate Aminotrans (AST/SGOT 69 U/L (12-37); Bilirubin, Total 0.4 mg/dL (0.1-1.0); Blood Urea Nitrogen 53 mg/dL (8-24); Bun/Creatinine Ratio 46.5 (12.0-20.0); CO2, Blood 24 mmol/L (21-32); Calcium, Blood 7.9 mg/dL (8.5-10.1); Chloride, Blood 115 mmol/L (98-108); Creatinine, Blood 1.14 mg/dL (0.40-1.00); Glomerular Filtration Rate 49 (60-); Glucose, Blood 335 mg/dL (70-99); Magnesium, Blood 2.8 mg/dL (1.6-2.4); Phosphorus, Blood 3.6 mg/dL (2.5-4.9); Potassium, Blood 4.1 mmol/L (3.5-5.5); Sodium, Blood 145 mmol/L (136-145); Total Protein, Blood 5.9 g/dL (6.4-8.2)
[2019-12-15 05:11] LABS: PCO2 Arterial 45.9 mmHg (35-45); PO2 Arterial 65.1 mmHg (80-100); pH Blood Arterial 7.32 (7.35-7.45)
--- NOTE | 2019-12-15 07:24 | NUR ---
SHIFT SUMMARY PT REMAINS INTUBATED AND SEDATED, NO CHANGES TO VENT SETTINGS AC 14/350/10/65%, O2 SATURATIONS 90-95%, SEDATION VACATION THIS AM, PT OPENS EYES, FOLLOWS DIRECTIONS, SHAKES HEAD "YES" WHEN ASKED ABOUT PAIN, MEDICATED WITH FENTANYL WITH IMPROVEMENT. CARDIZEM TITRATED TO 20 TO MAINTAIN HR<110, BP MAPS>65 PER ARTLINE. TF @ GOAL RATE OF 40ml/hr, CBG'S REMAIN GREATER THAN 300, LANTUS AND HIGH SLIDING SCALE REGULAR INSULIN ADMINISTERED ORDERED. LANGLEY IN PLACE DRAINING YELLOW URINE. REPORT GIVEN TO DUANE ROSARIO.
--- NOTE | 2019-12-15 08:26 | NUR ---
PT SEDATED ON PROPOFOL FOR MECH VENT. PROPOFOL AT 35MCG. PT GRIMACES WITH NOXIOUS STIMULI, MOVES UPPER EXT; GROSS MOVEMENT. PT ON CARDIZEM GTT; DECREASED FROM 20 TO 15 HR 80-110. BP STABLE PER ART LINE TO RIGHT FEM. PIG TAIL CHEST TUBE TO LEFT ANTERIOR CHEST TO WALL SX. NO LEAK OR CREPITUS NOTED. SATS STABLE >90%. TUBE FEEDING TOLERATED AND AT GOAL RATE; HYPOACTIVE BT'S T/O. SKIN WARM AND DRY W GOOD CAP REFILL.
--- NOTE | 2019-12-15 12:49 | NUR ---
PT DESATURATE'S INTO MID 80'S WHEN TURNED ON RIGHT SIDE OR FOWLERS. DR ZHONG NOTIFIED. PT TO BE TURNED ON RIGHT SIDE AND MAY INCREASE FIO2 TO ACCOMMODATE TURN IF NEEDED PER DR ZHONG. PT'S BACK SIDE EXAMINED, NO CHANGES TO SKIN PER LAST TIRE MOLD ENGRAVER. SLIGHTLY RED ALONG INTERGLUTEAL CLEFT. PROPOFOL INCREASED TO 45MCG AROUND 1030 FOR STACKING ON VENT; THIS HELPED. CARDIZEM DECREASED TO 10 AT 1200 HEART RATE STABLE 90'S. FIO2 IS UP TO 85% TO COMPENSATE FOR PT LAYING ON RIGHT SIDE. CHEST TUBE TO ANTERIOR LEFT CHEST SECURE; NO LEAK, NO CREPITUS, NON-FLUCTUATING.
--- NOTE | 2019-12-15 19:08 | NUR ---
PT ABLE TO TOLERATE TURNS FROM SIDE TO SIDE FROM NOON ON WITH FIO2 AT 80%. FIO2 REMIANS AT 80%. NO OUTPUT FROM CHEST TUBE. BP STABLE. HEART RATE STABLE. CARDIZEM AT 10MG. PROPOFOL REMAINS AT 45MCG. PT CONT TO TOLERATE TUBE FEEDINGS AT GOAL RATE WITH MINIMAL TO NO RESIDUALS. LANTUS INCREASED TO COVER BS IN 300'S.
[2019-12-16 04:56] LABS: BASOPHILS ABSOLUTE AUTO 0.02 K/mm3 (0.00-0.23); BASOPHILS PERCENT AUTO 0 % (0-2); EOSINOPHILS PERCENT AUTO 0 % (0-6); Hemoglobin 7.2 g/dL (11.5-16.0); IMMATURE GRAN ABSOLUTE AUTO 0.66 K/mm3 (0.00-0.10); IMMATURE GRAN PERCENT AUTO 5 % (0-1); LYMPHOCYTES ABSOLUTE AUTO 0.29 K/mm3 (0.84-5.20); LYMPHOCYTES PERCENT AUTO 2 % (21-46); MONOCYTES ABSOLUTE AUTO 0.28 K/mm3 (0.16-1.47); MONOCYTES PERCENT AUTO 2 % (4-13); Mean Corpuscular HGB 23.2 pg (26.0-34.0); Mean Corpuscular HGB Conc 27.7 g/dL (31.5-36.5); Mean Corpuscular Volume 84 fL (80-100); Mean Platelet Volume 11.3 fL (9.1-12.4); NEUTROPHILS ABSOLUTE AUTO 13.32 K/mm3 (1.96-9.15); NEUTROPHILS PERCENT AUTO 92 % (41-73); NRBC ABSOLUTE 0.21 K/mm3 (0.00-0.02); NRBC Auto 1.4 /100 WBC (0.0-0.2); Platelet Count 239 K/mm3 (150-400); RDW Coefficient Variation 20.8 % (11.7-14.2); Red Blood Cell Count 3.11 M/mm3 (3.80-5.20); White Blood Cell Count 14.57 K/mm3 (4.00-11.30)
[2019-12-16 05:12] LABS: PCO2 Arterial 46.6 mmHg (35-45); PO2 Arterial 65.3 mmHg (80-100); pH Blood Arterial 7.27 (7.35-7.45)
[2019-12-16 05:20] LABS: Alanine Aminotransfer (ALT/SGP 255 U/L (12-78); Albumin, Blood 1.9 g/dL (3.4-5.0); Albumin/Globulin Ratio 0.5 (0.8-1.8); Alk Phos 77 U/L (50-136); Anion Gap 8 mmol/L (6-16); Aspartate Aminotrans (AST/SGOT 34 U/L (12-37); Bilirubin, Total 0.5 mg/dL (0.1-1.0); Blood Urea Nitrogen 67 mg/dL (8-24); Bun/Creatinine Ratio 49.3 (12.0-20.0); CO2, Blood 22 mmol/L (21-32); Calcium, Blood 8.2 mg/dL (8.5-10.1); Chloride, Blood 116 mmol/L (98-108); Creatinine, Blood 1.36 mg/dL (0.40-1.00); Globulin, Blood 3.9 g/dL (2.2-4.0); Glomerular Filtration Rate 40 (60-); Glucose, Blood 382 mg/dL (70-99); Phosphorus, Blood 3.9 mg/dL (2.5-4.9); Potassium, Blood 4.1 mmol/L (3.5-5.5); Sodium, Blood 146 mmol/L (136-145); Total Protein, Blood 5.8 g/dL (6.4-8.2); Vancomycin, Random 24.2 ug/mL
--- NOTE | 2019-12-16 07:31 | NUR ---
SHIFT SUMMARY NO ACUTE CHANGES THIS SHIFT, PT REMAINS INTUBATED AND SEDATED, VENT SET TO AC 14/350/10/ FIO2 80-100%, PTS O2 SATS DECREASE WHEN TURNED TO R SIDE. PT RESPONDS TO PAINFUL/NOXIOUS STIMULI. MONITOR SHOWS AFIB, HR 80'S-110 WITH SOME BREIF INCREAS TO 130, CARDIZEM INF @ 10- UNCHANGED T/O SHIFT. PROPOFOL CURRENLTLY INF @ 45. TF INF @ 40ml/hr, LOW RESIDUALS, CBG'S REMAIN IN 300'S. LANGLEY REMAINS IN PLACE DRAINING CLEAR YELLOW URINE. MORNING ABG SHOWED PH 7.27, CALL PLACED TO DR ZHONG, NO NEW ORDERS AT THIS TIME.
--- NOTE | 2019-12-16 09:48 | NUR ---
ASSUMED CARE OF PT AT 0700. REPORT FROM NO ROSARIO. PT INTUBATED AND SEDATED. VENT SETTINGS AC 16/350/10/100%. PROPOFOL INFUSING AT 45 MCG/KG/MIN. PT RESPONSES TO PAINFUL STIMULI. LUNGS COARSE THROUGHOUT. MINIMAL PINK SECRETIONS FROM ETT. COUGH REFLEX, NO GAG, SWALLOW. CHEST TUBE TO LEFT ANTERIOR WALL. DRESSING C/D/I. NO CREPITUS NOTED, NO AIR LEAK OR FLUCUATION. CONNECTED TO WATER SEAL. NO DRAINAGE NOTED. ABD OBESE, SOFT, BT X 4. VITAL HIGH TB INFUSING AT GOAL OF 40 ML/HR c 30 ML FLUSHES q4 HRS. RESIDUALS THIS AM, 90 ML. LANGLEY PATENT AND DRAINING CLOUDY YELLOW URINE TO GRAVITY. TEMP 96.7, WARM BLANKETS PROVIDED. ART LINE TO RIGHT FEMORAL, CENTRAL LINE TO RIGHT GROIN. BP 150'S/60'S, MAP 80'S AT THIS TIME. AFIB, RATE 90-110. CARDIZEM INFUSING AT 10 MG/HR. 3+ EDEMA TO EXTREMITIES, ELEVATED ON PILLOWS. ATTEMPTED SEDATION VACATION, PT TOLERATED PROPOFOL ON STANDBY FOR APPROX 5 MINS, HR, RESP RATE, AND BP INCREASED, O2 SATS DECREASED. PT ABLE TO OPEN EYES ON COMMAND, DID NOT SQUEEZE HANDS. PROPOFOL RESTARTED AT 40 MCG/KG/HR.
--- NOTE | 2019-12-16 11:41 | NUR ---
PT PRONED s COMPLICATIONS PER DR DOHERTY. FIO2 90%, O2 SATS 92%. APPROX 180 ML OF SEROUS FLUID IN CHEST TUBE WATER SEAL AFTER PRONING. WILL CONTINUE PRONE POSITION UNTIL 1900.
--- NOTE | 2019-12-16 18:00 | NUR ---
SHIFT SUMMARY PT PRONED FROM 1115 UNTIL 1730 THIS SHIFT. FIO2 REQUIREMENTS REMAINED AT 90% THROUGHOUT SHIFT. VENT SETTINGS AC 14/350/10/90%. 240 ML SEROUS FLUID FROM CHEST TUBE. HR AND BP TRENDING UP THIS SHIFT. CARDIZEM INFUSING AT 20 MG/HR, RATE 100-120'S, SBP 140-190'S. 350 ML URINE OUT THIS SHIFT. LUNGS CONTINUE TO BE COARSE AND DIMINISHED. TUBE FEEDINGS PLACED ON STANDBY WHILE PT WAS PRONED, GOAL RATE ADJUSTED TO 35 ML/HR PER DIETARY. PROPOFOL CONTINUES AT 45 MCG/KG/HR. LANGLEY PATENT AND DRAINING TO GRAVITY. WILL CONTINUE TO MONITOR UNTIL REPORT TO ONCOMING NURSE.
--- NOTE | 2019-12-16 20:30 | NUR ---
RECEIVED REPORT ON PT AT 1900. I-TRACE PERFORMED, ART LINE ZEROED. PT IS UNRESPONSIVE TO PAIN, BUT GAGGED SLIGHTLY DURING DEEP SUCTION AFTER ORAL CARE. NO FAMILY AT BEDSIDE, BUT CALLED FOR UPDATE THIS EVENING. VENT AC 14/ TV 350/ PEEP 10/ 90% FIO2. CHEST TUBE BUBBLING WITH SMALL FLUCTUATIONS, NO CREPITUS.
--- NOTE | 2019-12-16 21:00 | NUR ---
Returned call to fred Golden, and she added pt's sister Flavia to list, phone number added to chart.
--- NOTE | 2019-12-17 01:35 | NUR ---
CALLED DR. DOHERTY TO DISCUSS URINE OUTPUT (30 ML) SINCE IV LASIX GIVEN. ORDER RECEIVED TO CONTINUE TO MONITOR OUTPUT UNTIL MORNING. ALSO RECEIVED ORDER TO MONITOR BLOOD PRESSURE, AND IF MAP DROPS TO BEGIN PHENYLEPHRINE GTT TO MAINTAIN MAP 65 OR ABOVE.
[2019-12-17 05:06] LABS: BASOPHILS ABSOLUTE AUTO 0.03 K/mm3 (0.00-0.23); BASOPHILS PERCENT AUTO 0 % (0-2); EOSINOPHILS PERCENT AUTO 0 % (0-6); Hematocrit 26.2 % (33.0-51.0); Hemoglobin 7.2 g/dL (11.5-16.0); IMMATURE GRAN ABSOLUTE AUTO 1.03 K/mm3 (0.00-0.10); IMMATURE GRAN PERCENT AUTO 7 % (0-1); LYMPHOCYTES ABSOLUTE AUTO 0.31 K/mm3 (0.84-5.20); LYMPHOCYTES PERCENT AUTO 2 % (21-46); MONOCYTES PERCENT AUTO 4 % (4-13); Mean Corpuscular HGB 23.2 pg (26.0-34.0); Mean Corpuscular HGB Conc 27.5 g/dL (31.5-36.5); Mean Corpuscular Volume 85 fL (80-100); Mean Platelet Volume 11.2 fL (9.1-12.4); NEUTROPHILS PERCENT AUTO 87 % (41-73); NRBC ABSOLUTE 0.46 K/mm3 (0.00-0.02); NRBC Auto 3.1 /100 WBC (0.0-0.2); Platelet Count 229 K/mm3 (150-400); RDW Coefficient Variation 20.8 % (11.7-14.2); RDW Standard Deviation 64.2 fL (35.1-46.3); White Blood Cell Count 14.97 K/mm3 (4.00-11.30)
[2019-12-17 05:22] LABS: BAND PERCENT MAN 4 % (0-8); BASOPHILS PERCENT MAN 0 % (0-2); EOSINOPHILS PERCENT MAN 0 % (0-6); LYMPHOCYTES ABSOLUTE MAN 0.89 K/mm3 (0.84-5.20); LYMPHOCYTES PERCENT MAN 6 % (21-46); METAMYELOCYTE ABSOLUTE MAN 0.14 K/mm3 (0.00-0.00); METAMYELOCYTE PERCENT MAN 1 % (0-0); MONOCYTES ABSOLUTE MAN 0.14 K/mm3 (0.16-1.47); MONOCYTES PERCENT MAN 1 % (4-13); MYELOCYTE ABSOLUTE MAN 0.14 K/mm3 (0.00-0.00); MYELOCYTE PERCENT MAN 1 % (0-0); NEUTROPHILS ABSOLUTE MAN 13.62 K/mm3 (1.96-9.15); SEG NEUTROPHILS PERCENT MAN 87 % (41-73); TOTAL CELLS COUNTED 100
[2019-12-17 05:32] LABS: Anion Gap 11 mmol/L (6-16); Blood Urea Nitrogen 88 mg/dL (8-24); Bun/Creatinine Ratio 46.1 (12.0-20.0); CO2, Blood 18 mmol/L (21-32); Calcium, Blood 8.3 mg/dL (8.5-10.1); Chloride, Blood 114 mmol/L (98-108); Creatinine, Blood 1.91 mg/dL (0.40-1.00); Glomerular Filtration Rate 27 (60-); Glucose, Blood 342 mg/dL (70-99); Potassium, Blood 4.6 mmol/L (3.5-5.5); Sodium, Blood 143 mmol/L (136-145)
--- NOTE | 2019-12-17 06:47 | NUR ---
PT APPEARED TO GAG SLIGHTLY DURING 1999 ORAL CARE, NO OTHER RESPONSE SINCE. SPOKE WITH DAUGHTER URVASHI AGAIN TO SET UP FAMILY MEETING TIME THIS AM. PT WAS DOWN TO 80% FIO2 AT ONE POINT, AND CARDIZEM AT 5, BUT DID NOT CONTINUE TO TOLERATE. BACK TO 90% FIO2, AND 10 ON CARDIZEM GTT.
--- NOTE | 2019-12-17 10:30 | NUR ---
CARE ASSUMED CARE AND REPORT ASSUMED FROM DEIDRA ROSARIO. PT INTUBATED AND SEDATED. VENT AC 14, 350, PEEP 10, FIO2 90%. PT SEDATED WITH PROPOFOL AT 45 MCG. SEDATION VACATION FOR 40 MINUTES; PT WAS NOT ABLE TO FOLLOW COMMANDS AND DID NOT OPEN HER EYES; NO GAG PRESENT. WHEN OFF SEDATION, SHE DID BECOME AGITATED WITH ELEVATED BP AND WAS MOVING L ARM UP/DOWN. LUNG SOUNDS COARSE ON L SIDE, CLEAR IN RUL. CHEST TUBE SECURED IN L ANTERIOR CHEST; NO SIGNS OF CREPITUS. CHEST TUBE ON WATER SEAL AT THIS TIME. DILITIAZEM GTT AT 10 MG/HR; HR 90S. ART LINE SECURED AND CORRELATING TO CUFF PRESSURES. OGT RESIDUALS 130 ML; TOLERATING TF AT GOAL RATE. WILL CONTINUE TO MONITOR.
--- NOTE | 2019-12-17 12:39 | NUR ---
REASSESSMENT PT REMAINS INTUBATED AND SEDATED. VENT AC 14, 350, PEEP 10, FIO2 85%. CHEST TUBE REMAINS ON WATER SEAL. LUNG SOUNDS CLEAR AT THIS TIME IN ALL BOYD. PROPOFOL GTT AT 45 MCG. DILTIAZEM GTT REMAINS INFUSING AT 10 MG/HR; HR 90S. CONTINUES TO TOLERATE TG AT GOAL RATE THROUGH OGT WITH MINIMAL RESIDUAL. ART LINE CONTINUES TO CORRELATE WITH CUFF PRESSURE; BP 130S/80S. MD AWARE OF DECREASED URINE OUTPUT. PALLIATIVE CARE IN CONTACT WITH FAMILY. WILL CONTINUE TO MONITOR.
--- NOTE | 2019-12-17 16:42 | NUR ---
Family came by to see her at the window and had discussion with nursing about care.
--- NOTE | 2019-12-17 18:20 | NUR ---
SHIFT SUMMARY PT REMAINED INTUBATED AND SEDATED ENTIRE SHIFT EXCEPT DURING SEDATION VACATION. DILTIAZEM GTT REMAINS AT 10 MG/HR. CHEST TUBE TO WATER SEAL; NO CREPITUS. LUNG SOUNDS CLEAR TO AUSCULTATION IN ALL BOYD. VENT FIO2 DOWN TO 80%. PROPOFOL GTT INFUSING AT 45 MCG. WILL GIVE BEDSIDE, HANDOFF REPORT TO NOC RN.
--- NOTE | 2019-12-17 19:00 | NUR ---
ASSUMED CARE ASSUMED CARE OF PATIENT. REMAINS INTUBATED- AC 14, TV 350, PEEP 10, FIO2 80%. RR MID-20s. LEFT ANTERIOR CHEST TUBE TO WATER SEAL. NO AIR LEAK OR CREPITUS NOTED. SEDATED WITH PROPOFOL AT 45MCG/KG/MIN. BILATERAL SOFT WRIST RESTRAINTS IN PLACE TO PREVENT SELF-EXTUBATION. MONITOR SHOWS AFIB, RATE 90s. BP STABLE. CARDIZEM INFUSING @ 10MG/HR. RIGHT FEMORAL A-LINE AND CENTRAL LINE PATENT, DRSG WITH SMALL AMOUNT OF SANGUINOUS DRAINAGE NOTED. OG WITH VITAL HIGH PROTEIN INFUSING AT GOAL RATE OF 35CC/HR. LANGLEY PATENT AND DRAINING SCANT YELLOW URINE. SEE SHIFT ASSESSMENT FOR FULL ASSESSMENT.
--- NOTE | 2019-12-17 20:05 | NUR ---
URINE OUTPUT/DISCUSSION WITH MD DR. DOHERTY NOTIFIED OF DECREASE IN URINE OUTPUT- NEW ORDER RECEIVED FOR LR AT 100CC/HR X 1L. ALSO NOTIFIED OF CBGs 350-400s- ORDER RECEIVED TO INCREASE LANTUS TO 40UNITS SC AT BEDTIME.
[2019-12-18 04:00] LABS: BASOPHILS ABSOLUTE AUTO 0.03 K/mm3 (0.00-0.23); BASOPHILS PERCENT AUTO 0 % (0-2); EOSINOPHILS PERCENT AUTO 0 % (0-6); Hematocrit 26.2 % (33.0-51.0); Hemoglobin 7.4 g/dL (11.5-16.0); IMMATURE GRAN ABSOLUTE AUTO 1.24 K/mm3 (0.00-0.10); IMMATURE GRAN PERCENT AUTO 6 % (0-1); LYMPHOCYTES ABSOLUTE AUTO 0.37 K/mm3 (0.84-5.20); LYMPHOCYTES PERCENT AUTO 2 % (21-46); MONOCYTES ABSOLUTE AUTO 0.59 K/mm3 (0.16-1.47); MONOCYTES PERCENT AUTO 3 % (4-13); Mean Corpuscular HGB 23.3 pg (26.0-34.0); Mean Corpuscular HGB Conc 28.2 g/dL (31.5-36.5); Mean Corpuscular Volume 83 fL (80-100); Mean Platelet Volume 11.5 fL (9.1-12.4); NEUTROPHILS ABSOLUTE AUTO 18.89 K/mm3 (1.96-9.15); NEUTROPHILS PERCENT AUTO 89 % (41-73); NRBC ABSOLUTE 0.53 K/mm3 (0.00-0.02); NRBC Auto 2.5 /100 WBC (0.0-0.2); Platelet Count 240 K/mm3 (150-400); RDW Coefficient Variation 20.5 % (11.7-14.2); RDW Standard Deviation 62.1 fL (35.1-46.3); Red Blood Cell Count 3.17 M/mm3 (3.80-5.20); White Blood Cell Count 21.12 K/mm3 (4.00-11.30)
[2019-12-18 04:21] LABS: Alanine Aminotransfer (ALT/SGP 154 U/L (12-78); Albumin/Globulin Ratio 0.5 (0.8-1.8); Alk Phos 73 U/L (50-136); Anion Gap 10 mmol/L (6-16); Aspartate Aminotrans (AST/SGOT 18 U/L (12-37); Bilirubin, Total 0.5 mg/dL (0.1-1.0); Blood Urea Nitrogen 107 mg/dL (8-24); CO2, Blood 18 mmol/L (21-32); Calcium, Blood 8.3 mg/dL (8.5-10.1); Chloride, Blood 112 mmol/L (98-108); Creatinine, Blood 2.61 mg/dL (0.40-1.00); Globulin, Blood 4.1 g/dL (2.2-4.0); Glomerular Filtration Rate 19 (60-); Glucose, Blood 294 mg/dL (70-99); Potassium, Blood 5.2 mmol/L (3.5-5.5); Sodium, Blood 140 mmol/L (136-145); Total Protein, Blood 6.1 g/dL (6.4-8.2); Vancomycin, Random 29.5 ug/mL
[2019-12-18 04:49] LABS: BAND PERCENT MAN 4 % (0-8); BASOPHILS PERCENT MAN 0 % (0-2); EOSINOPHILS PERCENT MAN 0 % (0-6); LYMPHOCYTES ABSOLUTE MAN 0.63 K/mm3 (0.84-5.20); LYMPHOCYTES PERCENT MAN 3 % (21-46); MONOCYTES ABSOLUTE MAN 0.42 K/mm3 (0.16-1.47); MONOCYTES PERCENT MAN 2 % (4-13); MYELOCYTE ABSOLUTE MAN 0.63 K/mm3 (0.00-0.00); MYELOCYTE PERCENT MAN 3 % (0-0); NEUTROPHILS ABSOLUTE MAN 19.43 K/mm3 (1.96-9.15); SEG NEUTROPHILS PERCENT MAN 88 % (41-73); TOTAL CELLS COUNTED 100
--- NOTE | 2019-12-18 06:37 | NUR ---
SHIFT SUMMARY REMAINS INTUBATED- AC 14, TV 350, PEEP 10, FIO2 BETWEEN 80-100%. NOW AT 100%. SATS DECREASE WITH ANY REPOSITIONING AND TAKES TIME TO RECOVER. TACHYPNEIC WITH RATE MID-20s TO 30. PROPOFOL CONTINUES AT 45MCG/KG/MIN. ATTEMPTED TO TITRATE DOWN BUT RR INCREASED TO MID-30s. MEDICATED WITH FENTANYL 50MCG IV X 1 AN ADJUNCT TO SEDATION. NO SPONTANEOUS MOVEMENT. REMAINS IN AFIB. CARDIZEM GTT CONTINUES AT 10MG/HR. BP STABLE, OCCASIONALLY HYPERTENSIVE. AFEBRILE. OG WITH VITAL HIGH PROTEIN AT GOAL RATE OF 35CC/HR. RESIDUALS 70-110. LANGLEY PATENT, DECREASED URINE OUTPUT OF 150CC TOTAL. LR 1L GIVEN DURING NOC PER ORDER. DAUGHTER URVASHI UPDATED THIS AM. WILL REPORT TO DAY SHIFT RN WHEN AVAILABLE.
--- NOTE | 2019-12-18 08:00 | NUR ---
ASSUMED CARE BEDSIDE REPORT RECIEVED. PT IS LAYING IN BED INTUBATED, AND SEDATED. PT WITHOUT GAG OR COUGH. PT MINIMALLY RESPONSIVE TO NOXIOUS STIMULI. PT SEDATED WITH PROPOFOL AT 35 MCG/KG/MIN. VENT SETTINGS AC 14, TV 350, PEEP 10, FIO2 100%. WITH WITH MODERATE AMOUNT OF CASE ETT SECRETIONS. CHEST TUBE IN PLACE TO LEFT ANTERIOR CHEST WALL TO WATER SEAL. MINIMAL AIR LEAK NOTED. CENTRAL LINE AND ARTERIAL LINE IN PLACE TO RIGHT FEMORAL SITE. GOOD WAVEFORM NOTED TO A LINE. BP STABLE. CARDIZEM INFUSING AT 10 MG/HR AND NS TKO. SBW RESTRAINTS IN PLACE. LANGLEY IN PLACE WITH SMALL AMOUNT OF YELLOW URINE OUTPUT NOTED. SEE SHIFT ASSESSMENT FOR MORE DETAILS. WILL CONTINUE TO MONITOR.
--- NOTE | 2019-12-18 11:14 | NUR ---
MEDICAL POCJ Kohli, REQUESTS COMFORT CARE AND EXTUBATION AFTER MANY UPDATES AND CONVERSATIONS THIS AM. FAMILY MEMBERS TO BE ALLOWED TO VISIT PRIOR TO EXTUBATION IN GROUPS OF TWO MAX PER VISIT. CJ AND ERNESTO/JAMAALUGHTERS TO BE PRESENT DURING EXTUBATION IF POSSIBLE. SPOKE WITH PT'S RN, KAITLYN WOODS., COOKER MECHANIC, DR ZHONG, DR ASH, ORAL PATHOLOGIST AND RT FOR PLANNED EXTUBATION THIS AFTERNOON. PT IS OBTUNDED, WITH INCREASED RESPIRATORY AND RENAL FAILURE THIS AM. FAMILY MADE AWARE THAT PT IS RAPIDLY DECLINING AND MAY NOT SURVIVE NEXT FEW HOURS EVEN WITH VENTILATION AND CURRENT TX IN PLACE. PT APPEARS COMFORTABLE WITH NO NONVERBAL INDICATORS OF PAIN, ANXIETY OR DISTRESS NOTED OTHER THAN INCREASED RESP EFFORT, GUPPY BREATHING NOTED WITH RN'S PROVIDING CARE IN THE ROOM. COMFORT CARE ORDERS OBTAINED AND ENTERED WITH BEDSIDE RN ASSIST FOR MAINTAINING MEDICATIONS THAT WILL CONTRIBUTE TO PT'S COMFORT. PAL CARE ORAL PATHOLOGIST PLANS TO BE PRESENT SUPPORT TO FAMILY THIS AFTERNOON AND I WILL BE ALSO IF NEEDED.
--- NOTE | 2019-12-18 11:29 | NUR ---
UPDATE/COMFORT CARE PT ISAK CJ HAS DECIDED TO MOVE FORWARD WITH COMFORT CARE. PALLIATIVE CARE RN KRISTEN HAS DISCUSSED DETAILS WITH FAMILY AND HAS COORDINATED FOR FAMILY TO VISIT PRIOR TO EXTUBATION. PT MADE DNR STATUS AT THIS TIME. FAMILY PLANS TO COME SEE PT AROUND 1500 TODAY. WILL CONTINUE TO MONITOR.
--- NOTE | 2019-12-18 12:46 | NUR ---
Initial spiritual care note: Facilitated family visits, two at a time, at bedside. Neither pt or family is restorationism. However, family appreciaitive of emotional support. Facilitated story-telling and expressions of gratitude. Gentle anticipatory bereavement probation counselor well recieved. Family tearful, but appropriate. Pt to be extubated once all family allowed to say goodbye. I will continue to monitor for family needs. Pt is non-responsive.
--- NOTE | 2019-12-18 15:09 | NUR ---
EXTUBATION PT EXTUBATED AT 1504 BY RT BRETT. PT ON ROOM AIR. MINIMAL SECRETIONS. SISTER AT BEDSIDE. IV'S DISCONNECTED. CENTRAL LINE AND ART LINE REMAIN IN PLACE AT THIS TIME. WILL CONTINUE TO MONITOR.
--- NOTE | 2019-12-18 15:22 | NUR ---
MONITOR SHOWED ASYSTOLE. NO HEART TONES NOTED WITH AUSCULTATION. TIME OF 1515. FAMILY REMAINS AT BEDSIDE. DR ZHONG NOTIFIED.
--- NOTE | 2019-12-18 16:27 | NUR ---
Spiritual care note: Present with family throughout extubation and TOD. Provided prayer and reimbursement counselor to good effect. Mrs. Nicole passed peacefully due to excellent nursing. Family appreciative.
== END 2019-12-18 15:15 | DRG 870 ==
LOC: ER 14:05 → ICUW 18:11
PROVIDERS: Emergency Medicine; Internal Medicine Critical Care Medicine; Nurse Practitioner Acute Care; Pharmacist; ADMIT Internal Medicine
PROC: 5A09357 Assistance with Respiratory Ventilation, Less than 24 Consecutive Hours, Continuous Positive Airway Pressure (ICD-10-PCS; principal; 2019-12-12)
PROC: 06HM33Z Insertion of Infusion Device into Right Femoral Vein, Percutaneous Approach (ICD-10-PCS; 2019-12-13)
PROC: 04HK33Z Insertion of Infusion Device into Right Femoral Artery, Percutaneous Approach (ICD-10-PCS; 2019-12-13)
PROC: 3E063XZ Introduction of Vasopressor into Central Artery, Percutaneous Approach (ICD-10-PCS; 2019-12-13)
PROC: 0W9B30Z Drainage of Left Pleural Cavity with Drainage Device, Percutaneous Approach (ICD-10-PCS; 2019-12-14)
PROC: 5A1955Z Respiratory Ventilation, Greater than 96 Consecutive Hours (ICD-10-PCS; 2019-12-17)
PROC: 0BH18EZ Insertion of Endotracheal Airway into Trachea, Via Natural or Artificial Opening Endoscopic (ICD-10-PCS; 2019-12-17)
DX: A41.01 Sepsis due to Methicillin susceptible Staphylococcus aureus (principal); J96.20 Acute and chronic respiratory failure, unspecified whether with hypoxia or hypercapnia; R65.21 Severe sepsis with septic shock; J15.211 Pneumonia due to Methicillin susceptible Staphylococcus aureus; I50.32 Chronic diastolic (congestive) heart failure; Z68.41 Body mass index [BMI] 40.0-44.9, adult; J44.1 Chronic obstructive pulmonary disease with (acute) exacerbation; J96.11 Chronic respiratory failure with hypoxia; N17.9 Acute kidney failure, unspecified; Z51.5 Encounter for palliative care; Z99.81 Dependence on supplemental oxygen; K21.9 Gastro-esophageal reflux disease without esophagitis; E03.9 Hypothyroidism, unspecified; I48.0 Paroxysmal atrial fibrillation; Z79.4 Long term (current) use of insulin; E11.40 Type 2 diabetes mellitus with diabetic neuropathy, unspecified; Z87.891 Personal history of nicotine dependence; E66.01 Morbid (severe) obesity due to excess calories
CPT/HCPCS: 31500; 31720; 32551; 36415; 36556; 36600; 36620; 51702; 71045; 71260; 80048; 80053; 80202; 81003; 82330; 82803; 82947; 83605; 83735; 83880; 84100; 84145; 84484; 85014; 85018; 85025; 87040; 87070; 87077; 87186; 87205; 93005; 93010; 94002; 94003; 94640; 94660; 96374-59; 99285-25; A9270-GY; C1751; C9113; J0692; J1815; J1940; J2405; J2704; J2920; J3010; J3370; J7030; J7050; J7060; J7120; Q9967; U0002